=== PATIENT | male | born 1950 | race Caucasian/White ===

== ENCOUNTER → 2017-01-01 | Outpatient (CLI) | payer MEDICARE ==
[2017-01-01 11:42] LABS: HEMATOCRIT 35.6 % (37.9-51.0); HEMOGLOBIN 11.8 g/dL (13.5-17.0); HGB HCT DIFFERENCE -0.2; MEAN CORPUSCULAR HEMOGLOBIN 27.8 pg (27.0-33.4); MEAN CORPUSCULAR HGB CONC 33.1 g/dL (32.0-36.0); MEAN CORPUSCULAR VOLUME 84 fl (80-97); RED BLOOD COUNT 4.25 10^6/uL (4.35-5.55); RED CELL DISTRIBUTION WIDTH 16.6 % (11.5-14.0); WHITE BLOOD COUNT 4.5 10^3/uL (4.0-10.5)
[2017-01-01 11:53] LABS: APPEARANCE,URINE CLEAR; BILIRUBIN,URINE NEGATIVE (NEGATIVE); GLUCOSE, URINE >=500 mg/dL (NEGATIVE); KETONES,URINE NEGATIVE (NEGATIVE); LEUKOCYTE ESTERASE,URINE NEGATIVE (NEGATIVE); NITRITE,URINE NEGATIVE (NEGATIVE); PROTEIN,URINE >=500 mg/dL (NEGATIVE); URINE SPECIFIC GRAVITY 1.013; UROBILINOGEN,URINE NEGATIVE mg/dL (<2.0)
[2017-01-01 12:04] LABS: ANION GAP 8 (5-19); BLOOD UREA NITROGEN 25 mg/dL (7-20); CALCIUM 9.2 mg/dL (8.4-10.2); CARBON DIOXIDE 28 mmol/L (22-30); CHLORIDE 106 mmol/L (98-107); CREATININE RESULT 1.96 mg/dL (0.52-1.25); GLUCOSE 218 mg/dL (75-110); MAGNESIUM 1.9 mg/dL (1.6-2.3); POTASSIUM 4.1 mmol/L (3.6-5.0); SODIUM 141.5 mmol/L (137-145)
[2017-01-02 12:38] LABS: CREATININE URINE 102.4 mg/dL (Not Estab.)
== END ==
LOC: OD 10:18
PROVIDERS: ATTEND Internal Medicine Nephrology
DX: E11.22 Type 2 diabetes mellitus with diabetic chronic kidney disease (principal); N18.4 Chronic kidney disease, stage 4 (severe); R80.9 Proteinuria, unspecified; D64.9 Anemia, unspecified; E87.6 Hypokalemia
CPT/HCPCS: 36415; 80048; 81001; 82570; 83735; 84156; 85027

== ENCOUNTER → 2017-05-31 | Outpatient (CLI) | payer MEDICARE ==
[2017-05-31 10:41] LABS: HEMATOCRIT 28.8 % (37.9-51.0); HGB HCT DIFFERENCE 1.2; MEAN CORPUSCULAR HEMOGLOBIN 30.1 pg (27.0-33.4); MEAN CORPUSCULAR HGB CONC 34.6 g/dL (32.0-36.0); MEAN CORPUSCULAR VOLUME 87 fl (80-97); RED BLOOD COUNT 3.31 10^6/uL (4.35-5.55); RED CELL DISTRIBUTION WIDTH 14.1 % (11.5-14.0); WHITE BLOOD COUNT 3.9 10^3/uL (4.0-10.5)
[2017-05-31 10:52] LABS: APPEARANCE,URINE CLEAR; BILIRUBIN,URINE NEGATIVE (NEGATIVE); GLUCOSE, URINE >=500 mg/dL (NEGATIVE); KETONES,URINE NEGATIVE (NEGATIVE); LEUKOCYTE ESTERASE,URINE NEGATIVE (NEGATIVE); NITRITE,URINE NEGATIVE (NEGATIVE); PROTEIN,URINE 100 mg/dL (NEGATIVE); URINE SPECIFIC GRAVITY 1.006; UROBILINOGEN,URINE NEGATIVE mg/dL (<2.0)
[2017-05-31 11:08] LABS: URINE CREATININE 35.2 mg/dL (22-328)
[2017-05-31 11:08] LABS: ANION GAP 11 (5-19); BLOOD UREA NITROGEN 43 mg/dL (7-20); CARBON DIOXIDE 23 mmol/L (22-30); CHLORIDE 104 mmol/L (98-107); CREATININE RESULT 2.88 mg/dL (0.52-1.25); GLUCOSE 361 mg/dL (75-110); PHOSPHORUS 4.8 mg/dL (2.5-4.5); SODIUM 138.3 mmol/L (137-145)
[2017-05-31 11:16] LABS: URINE PROTEIN 259.1 mg/dL (<12)
== END ==
LOC: OD 09:26
PROVIDERS: ATTEND Internal Medicine Nephrology
DX: N18.4 Chronic kidney disease, stage 4 (severe) (principal); D64.9 Anemia, unspecified; E11.9 Type 2 diabetes mellitus without complications; R80.9 Proteinuria, unspecified
CPT/HCPCS: 36415; 80048; 81001; 82570; 83970; 84100; 84156; 85027

== ENCOUNTER → 2017-06-19 | Outpatient (CLI) | payer MEDICARE ==
[2017-06-19 11:24] LABS: HEMATOCRIT 27.7 % (37.9-51.0); HEMOGLOBIN 9.7 g/dL (13.5-17.0); HGB HCT DIFFERENCE 1.4; MEAN CORPUSCULAR HEMOGLOBIN 30.5 pg (27.0-33.4); MEAN CORPUSCULAR HGB CONC 34.9 g/dL (32.0-36.0); MEAN CORPUSCULAR VOLUME 87 fl (80-97); RED BLOOD COUNT 3.16 10^6/uL (4.35-5.55); WHITE BLOOD COUNT 3.6 10^3/uL (4.0-10.5)
[2017-06-19 11:49] LABS: ALANINE AMINOTRANSFERASE 26 U/L (21-72); ALBUMIN 3.3 g/dL (3.5-5.0); ALKALINE PHOSPHATASE 74 U/L (38-126); ANION GAP 9 (5-19); ASPARTATE AMINO TRANSFERASE 12 U/L (17-59); BILIRUBIN,DIRECT 0.2 mg/dL (0.0-0.4); BILIRUBIN,TOTAL 0.6 mg/dL (0.2-1.3); BLOOD UREA NITROGEN 50 mg/dL (7-20); CARBON DIOXIDE 25 mmol/L (22-30); CHLORIDE 110 mmol/L (98-107); CREATININE RESULT 2.82 mg/dL (0.52-1.25); GLUCOSE 87 mg/dL (75-110); PHOSPHORUS 5.1 mg/dL (2.5-4.5); SODIUM 143.6 mmol/L (137-145); TOTAL PROTEIN 5.6 g/dL (6.3-8.2)
[2017-06-20 14:39] LABS: A/G RATIO 1.2 (0.7-1.7); ALBUMIN 2 2.7 g/dL (2.9-4.4); ALPHA-1-GLOBULIN 2 0.2 g/dL (0.0-0.4); GAMMA GLOBULIN 0.3 g/dL (0.4-1.8)
[2017-06-20 18:07] LABS: PTH INTACT 93 pg/mL (15-65)
== END ==
LOC: OD 10:25
PROVIDERS: ATTEND Internal Medicine Nephrology
DX: N18.4 Chronic kidney disease, stage 4 (severe) (principal); E87.5 Hyperkalemia; R80.9 Proteinuria, unspecified; D64.9 Anemia, unspecified
CPT/HCPCS: 36415; 80053; 82728; 83540; 83550; 83970; 84100; 84165; 84443; 85027

== ENCOUNTER → 2017-10-16 | Outpatient (CLI) | payer MEDICARE ==
[2017-10-16 09:19] LABS: HEMATOCRIT 29.2 % (37.9-51.0); HEMOGLOBIN 9.9 g/dL (13.5-17.0); HGB HCT DIFFERENCE 0.5; MEAN CORPUSCULAR HEMOGLOBIN 28.5 pg (27.0-33.4); MEAN CORPUSCULAR HGB CONC 33.7 g/dL (32.0-36.0); MEAN CORPUSCULAR VOLUME 84 fl (80-97); RED BLOOD COUNT 3.47 10^6/uL (4.35-5.55); WHITE BLOOD COUNT 4.9 10^3/uL (4.0-10.5)
[2017-10-16 09:26] LABS: APPEARANCE,URINE CLEAR; BILIRUBIN,URINE NEGATIVE (NEGATIVE); GLUCOSE, URINE >=500 mg/dL (NEGATIVE); KETONES,URINE NEGATIVE (NEGATIVE); LEUKOCYTE ESTERASE,URINE NEGATIVE (NEGATIVE); NITRITE,URINE NEGATIVE (NEGATIVE); PROTEIN,URINE >=500 mg/dL (NEGATIVE); URINE SPECIFIC GRAVITY 1.011; UROBILINOGEN,URINE NEGATIVE mg/dL (<2.0)
[2017-10-16 09:50] LABS: ANION GAP 12 (5-19); BLOOD UREA NITROGEN 37 mg/dL (7-20); CALCIUM 8.6 mg/dL (8.4-10.2); CARBON DIOXIDE 23 mmol/L (22-30); CHLORIDE 112 mmol/L (98-107); CREATININE RESULT 3.06 mg/dL (0.52-1.25); GLUCOSE 180 mg/dL (75-110); POTASSIUM 4.9 mmol/L (3.6-5.0); SODIUM 146.8 mmol/L (137-145)
== END ==
LOC: OD 08:31
PROVIDERS: ATTEND Physician Assistant Medical
DX: E11.22 Type 2 diabetes mellitus with diabetic chronic kidney disease (principal); N18.4 Chronic kidney disease, stage 4 (severe); R80.9 Proteinuria, unspecified; D64.9 Anemia, unspecified; E87.6 Hypokalemia
CPT/HCPCS: 36415; 80048; 81001; 85027

== ENCOUNTER 2017-11-12 10:03 | Emergency (ER) | payer MEDICARE ==
--- NOTE | 2017-11-12 10:23 | ER Document Report ---
ED General - General Chief Complaint: Nose Bleed Stated Complaint: NOSE BLEED Time Seen by Provider: 11/12/17 10:15 Mode of Arrival: Ambulatory Information source: Patient Notes: 67-year-old male who is on aspirin presents with complaints of bleeding from his right nostril. Patient was placed her last night he had some packing when he takes packing out it starts bleeding. Patient denies any dizziness headaches or any other concerns TRAVEL OUTSIDE OF THE [place].S. IN LAST 30 DAYS: No - HPI Onset: Yesterday Onset/Duration: Sudden Quality of pain: No pain Severity: Mild Pain Level: Denies Associated symptoms: Other Exacerbated by: Denies Relieved by: Denies Similar symptoms previously: Yes - 2 weeks Recently seen / treated by doctor: No - Related Data Allergies/Adverse Reactions: No Known Allergies Allergy (Verified 11/12/17 10:04) Home Medications: Current Home Medications Aspirin [Adult Low Dose Aspirin EC] 81 mg PO DAILY 11/12/17 [History] Atorvastatin Calcium [Lipitor 20 mg Tablet] 20 mg PO QHS 11/12/17 [History] Calcium Carbonate [Calcium] 500 mg PO BID 11/12/17 [History] Carvedilol [Coreg 25 mg Tablet] 1 tab PO BID 11/12/17 [History] Cholecalciferol (Vitamin D3) [Vitamin D3] 1,000 unit PO BID 11/12/17 [History] Clonidine HCl [Catapres 0.2 mg Tablet] 0.2 mg PO Q8 11/12/17 [History] Cyanocobalamin (Vitamin B-12) [B-12] 1,000 mcg PO DAILY 11/12/17 [History] Furosemide [Lasix 40 mg Tablet] 40 mg PO BID 11/12/17 [History] Insulin Aspart [Novolog Flexpen] 8 unit SQ AC 11/12/17 [History] Insulin Glargine,Hum.rec.anlog [Lantus] 50 unit SQ QHS 11/12/17 [History] Lactulose 10 gm PO DAILY 11/12/17 [History] Lisinopril [Prinivil 40 mg Tablet] 40 mg PO BID 11/12/17 [History] [place]-3 Fatty Acids/Fish Oil [Fish Oil 1,000 mg Capsule] 1 each PO DAILY [History] Omeprazole 20 mg PO DAILY PRN 11/12/17 [History] Sildenafil Citrate [Viagra] 100 mg PO DAILY PRN 11/12/17 [History] Past Medical History - Social History Smoking Status: Former Smoker Cigarette use (# per day): No Chew tobacco use (# tins/day): No Smoking Education Provided: No Frequency of alcohol use: None Drug Abuse: None Family History: Reviewed & Not Pertinent Patient has suicidal ideation: No Patient has homicidal ideation: No - Past Medical History Cardiac Medical History: Reports: Hx Hypertension Denies: Hx Coronary Artery Disease, Hx Heart Attack Pulmonary Medical History: Denies: Hx Asthma, Hx Bronchitis, Hx COPD, Hx Pneumonia Neurological Medical History: Denies: Hx Cerebrovascular Accident, Hx Seizures Renal/ Medical History: Denies: Hx Peritoneal Dialysis GI Medical History: Reports: Hx Hiatal Hernia. Denies: Hx Hepatitis, Hx Ulcer Musculoskeltal Medical History: Denies Hx Arthritis Infectious Medical History: Denies: Hx Hepatitis Past Surgical History: Denies: Hx Open Heart Surgery, Hx Pacemaker - Immunizations Hx Diphtheria, Pertussis, Tetanus Vaccination: Yes Review of Systems - Review of Systems Notes: REVIEW OF SYSTEMS: CONSTITUTIONAL : Denies fever, chills, or sweats. Denies recent illness. EENT: Admits nosebleed CARDIOVASCULAR: Denies chest pain. Denies palpitations or racing or irregular heart beat. Denies ankle edema. RESPIRATORY: Denies cough, cold, or chest congestion. Denies shortness of breath, difficulty breathing, or wheezing. GASTROINTESTINAL: Denies abdominal pain or distention. Denies nausea, vomiting , or diarrhea. Denies blood in vomitus, stools, or per rectum. Denies black, tarry stools. Denies constipation. GENITOURINARY: Denies difficulty urinating, painful urination, burning, frequency, blood in urine, or discharge. MUSCULOSKELETAL: Denies back or neck pain or stiffness. Denies joint pain or swelling. SKIN: Denies rash, lesions or sores. HEMATOLOGIC : Denies easy bruising or bleeding. LYMPHATIC: Denies swollen, enlarged glands. NEUROLOGICAL: Denies confusion or altered mental status. Denies passing out or loss of consciousness. Denies dizziness or lightheadedness. Denies headache. Denies weakness or paralysis or loss of use of either side. Denies problems with gait or speech. Denies sensory loss, numbness, or tingling. Denies seizures. PSYCHIATRIC: Denies anxiety or stress. Denies depression, suicidal ideation, or homicidal ideation. ALL OTHER SYSTEMS REVIEWED AND NEGATIVE. Dictation was performed using [employer] voice recognition software PHYSICAL EXAMINATION: GENERAL: Well-appearing, well-nourished and in no acute distress. HEAD: Atraumatic, normocephalic. EYES: Pupils equal round extraocular movements intact, conjunctiva are normal. ENT: Nares patent there is dry blood in the right nostril packing of tissue was removed NECK: Normal range of motion LUNGS: No respiratory distress Musculoskeletal: Normal range of motion NEUROLOGICAL: Normal speech, normal gait. PSYCH: Normal mood, normal affect. SKIN: Warm, Dry, normal turgor, no rashes or lesions noted. Course - Re-evaluation Re-evalutation: 11/12/17 10:22 Patient currently has no active bleeding, this appears to be an anterior bleed as he is not hemorrhaging, at patient's request I will place packing 11/12/17 10:42 At patient's request nasal packing was placed in the right nostril with Afrin, no complications After performing a Medical Screening Examination, I estimate there is LOW risk for CENTRAL CORD SYNDROME, LUDWIGS ANGINA, PERITONSILLAR ABSCESS, RETROPHARYNGEAL ABSCESS, EPIDURAL MASS LESION, SEVERE SPINAL STENOSIS, ARTERIAL DISSECTION, MENINGITIS, or ACUTE CORONARY SYNDROME, thus I consider the discharge disposition reasonable. I have reevaluated this patient multiple times and no significant life threatening changes are noted. The patient and I have discussed the diagnosis and risks, and we agree with discharging home to follow-up on an outpatient basis with the understanding that symptoms and presentations can change. We also discussed returning to the Emergency Department immediately if new or worsening symptoms occur. We have discussed the symptoms which are most concerning (e.g., saddle anesthesia, urinary or bowel incontinence or retention, changing or worsening pain) that necessitate immediate return. Procedures - Additional Procedures nasal packing Time performed: 10:42 - using rhino rocket with afrin in right nostril no complication no bleeding Discharge - Discharge Clinical Impression: Epistaxis Condition: Stable Disposition: HOME, SELF-CARE Instructions: Nosebleed Instructions ([facility]) Additional Instructions: Please have nasal packing removed in 2-3 days by her primary care physician or follow-up with ENT as provided below Please contact the following office for an appointment tomorrow or returm immediately if there are any other concerns [facility] Address: [address] [place] [address], [place] [address] Prescriptions: Cephalexin Monohydrate [Keflex 500 mg Capsule] 500 mg PO Q6H 5 Days capsule
[2017-11-12] MEDS ORDERED: OXYMETAZOLINE HCL 0.05% NASAL SPRAY 15 ML BOTTLE NASL ONE (10:27)
== END 2017-11-12 10:46 | disposition home or self-care (01) ==
LOC: ER 10:03
DX: R04.0 Epistaxis (principal); I10 Essential (primary) hypertension; Z87.891 Personal history of nicotine dependence
CPT/HCPCS: 99283; 30901; J3490

== ENCOUNTER → 2018-01-10 | Outpatient (CLI) | payer MEDICARE ==
[2018-01-10 10:44] LABS: HEMATOCRIT 23.7 % (37.9-51.0); MEAN CORPUSCULAR HEMOGLOBIN 28.4 pg (27.0-33.4); MEAN CORPUSCULAR VOLUME 84 fl (80-97); PLATELET COUNT 109 10^3/uL (150-450); RED BLOOD COUNT 2.83 10^6/uL (4.35-5.55); RED CELL DISTRIBUTION WIDTH 16.6 % (11.5-14.0); WHITE BLOOD COUNT 3.8 10^3/uL (4.0-10.5)
[2018-01-10 11:02] LABS: ANION GAP 10 (5-19); BLOOD UREA NITROGEN 42 mg/dL (7-20); CALCIUM 8.6 mg/dL (8.4-10.2); CARBON DIOXIDE 21 mmol/L (22-30); CHLORIDE 111 mmol/L (98-107); GLUCOSE 207 mg/dL (75-110); POTASSIUM 4.3 mmol/L (3.6-5.0)
[2018-01-10 11:22] LABS: URINE CREATININE 56.4 mg/dL (22-328)
[2018-01-10 11:57] LABS: UR PRO/CREAT RATIO RESULT 16.2 mg/mg (0.0-0.2); URINE PROTEIN 912.6 mg/dL (<12)
== END ==
LOC: OD 10:10
PROVIDERS: ATTEND Physician Assistant Medical
DX: E11.22 Type 2 diabetes mellitus with diabetic chronic kidney disease (principal); I12.9 Hypertensive chronic kidney disease with stage 1 through stage 4 chronic kidney disease, or unspecified chronic kidney disease; N18.4 Chronic kidney disease, stage 4 (severe); R80.9 Proteinuria, unspecified
CPT/HCPCS: 36415; 80048; 82570; 84156; 85027

== ENCOUNTER 2018-02-14 12:01 | Emergency (ER) | payer OTHER, MEDICARE ==
--- NOTE | 2018-02-14 13:36 | ER Document Report ---
ED Medical Screen (RME) - General Chief Complaint: Anemia Stated Complaint: NEEDS BLOOD TRANSFUSION Time Seen by Provider: 02/14/18 13:36 Notes: Patient sent here by information and referral director for blood transfusion. Patient has chronic kidney disease as well as CLL. Had a colonoscopy yesterday which was unremarkable. Followed at the [facility] in [facility] as well. Oncologist locally is Dr. Jules in [place]. Patient states that he has had increased fatigue and generally not feeling well but denies any black tarry stools, hematemesis, hematochezia or other complaints at this time. Denies any fevers, chills, sweats. I have greeted and performed a rapid initial assessment of this patient. A comprehensive ED assessment and evaluation of the patient, analysis of test results and completion of the medical decision making process will be conducted by additional ED providers. TRAVEL OUTSIDE OF THE [place] IN LAST 30 DAYS: No - Related Data Allergies/Adverse Reactions: No Known Allergies Allergy (Verified 02/14/18 12:07) Past Medical History - Past Medical History Cardiac Medical History: Reports: Hx Hypercholesterolemia, Hx Hypertension Denies: Hx Coronary Artery Disease, Hx Heart Attack Pulmonary Medical History: Denies: Hx Asthma, Hx Bronchitis, Hx COPD, Hx Pneumonia Neurological Medical History: Denies: Hx Cerebrovascular Accident, Hx Seizures Renal/ Medical History: Denies: Hx Peritoneal Dialysis GI Medical History: Reports: Hx Hiatal Hernia. Denies: Hx Hepatitis, Hx Ulcer Musculoskeltal Medical History: Denies Hx Arthritis Infectious Medical History: Denies: Hx Hepatitis Past Surgical History: Reports: Hx Abdominal Surgery - hernia repair, Hx Appendectomy, Hx Cholecystectomy, Hx Kidney (Renal Surgery) - right kidney-half removed, Hx Orthopedic Surgery - laminectomy, knee. Denies: Hx Open Heart Surgery, Hx Pacemaker - Immunizations Hx Diphtheria, Pertussis, Tetanus Vaccination: Yes Physical Exam - Vital signs Vitals: Temp Pulse Resp BP Pulse Ox 98.9 F 66 20 152/60 H 96 02/14/18 12:18 02/14/18 12:18 02/14/18 12:18 02/14/18 12:18 02/14/18 12:18 Interpretation: Normal - Notes Notes: General: Alert no acute distress HEENT: Atraumatic, normocephalic, pupils equal round react to light and accommodation, extraocular muscles are intact, nose is non tender, posterior pharynx is without erythema or exudate. Tongue is unremarkable. Slightly pale conjunctiva Heart: Heart with regular rate and rhythm, no murmurs, no rubs, no clicks Lungs: Lungs clear to auscultation bilaterally, no wheezes, rhonchi, rales Abdomen: Abdomen is soft, nontender, nondistended, normal bowel sounds Neuro: cranial nerves II through XII intact, reflexes intact, sensation intact, Extremities:Moving all extremities. Equal strength bilaterally in the upper lower extremities. No significant deformity Skin: No lesions. Skin intact with slightly pale Psych: Normal insight. Normal judgment - General General appearance: Appears well, Alert - HEENT Head: Normocephalic, Atraumatic Eyes: Normal Pupils: PERRL - Respiratory Respiratory status: No respiratory distress Chest status: Nontender Breath sounds: Normal Chest palpation: Normal - Cardiovascular Rhythm: Regular Heart sounds: Normal auscultation Murmur: No - Abdominal Inspection: Normal Distension: No distension Bowel sounds: Normal Tenderness: Nontender Organomegaly: No organomegaly - Back Back: Normal, Nontender - Extremities General upper extremity: Normal inspection, Nontender, Normal color, Normal ROM , Normal temperature General lower extremity: Normal inspection, Nontender, Normal color, Normal ROM , Normal temperature, Normal weight bearing. No: Yesenia's sign - Neurological Neuro grossly intact: Yes Cognition: Normal Orientation: AAOx4 Cushing Coma Scale Eye Opening: Spontaneous Cushing Coma Scale Verbal: Oriented Cushing Coma Scale Motor: Obeys Commands Caitlin Coma Scale Total: 15 Speech: Normal Motor strength normal: LUE, RUE, LLE, RLE Sensory: Normal - Psychological Associated symptoms: Normal affect, Normal mood - Skin Skin Temperature: Warm Skin Moisture: Dry Skin Color: Normal Course - Re-evaluation Re-evalutation: 02/14/18 13:54 Patient's hemoglobin is 7 and hematocrit of 21. Will type and screen in order 1 unit PRBC at this time. - Vital Signs Vital signs: Temp Pulse Resp BP Pulse Ox 98.9 F 66 20 152/60 H 96 02/14/18 12:18 02/14/18 12:18 02/14/18 12:18 02/14/18 12:18 02/14/18 12:18
[2018-02-14] MEDS ORDERED: NORMAL SALINE 250 ML IV PRN ×3 (13:52→20:37)
--- NOTE | 2018-02-14 15:50 | ER Document Report ---
ED General - General Chief Complaint: Anemia Stated Complaint: NEEDS BLOOD TRANSFUSION Time Seen by Provider: 02/14/18 13:36 TRAVEL OUTSIDE OF THE [place]. IN LAST 30 DAYS: No - HPI Notes: 67-year-old male with a history of chronic anemia, iron deficiency, chronic kidney disease who presents for "transfusion". Patient had labs ordered and then later drawn today by his tax manager public. Was noted to have a hemoglobin of 7.2. He has had anemia in the past does not require transfusion. Is not currently taking iron supplementation. He denies any active rectal bleeding, no hematemesis. Just feels mildly weak. No chest pain or dyspnea. No use of anticoagulants. No other modifying factors, no other associated symptoms, no other provocative or palliative factors. - Related Data Allergies/Adverse Reactions: No Known Allergies Allergy (Verified 02/14/18 12:07) Past Medical History - Social History Smoking Status: Never Smoker Chew tobacco use (# tins/day): No Frequency of alcohol use: None Drug Abuse: None Family History: Reviewed & Not Pertinent Patient has suicidal ideation: No Patient has homicidal ideation: No - Past Medical History Cardiac Medical History: Reports: Hx Hypercholesterolemia, Hx Hypertension Denies: Hx Coronary Artery Disease, Hx Heart Attack Pulmonary Medical History: Denies: Hx Asthma, Hx Bronchitis, Hx COPD, Hx Pneumonia Neurological Medical History: Denies: Hx Cerebrovascular Accident, Hx Seizures Endocrine Medical History: Reports: Hx Diabetes Mellitus Type 2 Renal/ Medical History: Denies: Hx Peritoneal Dialysis Malignancy Medical History: Reports Other Other: history of CLL GI Medical History: Reports: Hx Hiatal Hernia. Denies: Hx Hepatitis, Hx Ulcer Musculoskeltal Medical History: Denies Hx Arthritis Infectious Medical History: Denies: Hx Hepatitis Past Surgical History: Reports: Hx Abdominal Surgery - hernia repair, Hx Appendectomy, Hx Cholecystectomy, Hx Kidney (Renal Surgery) - right kidney-half removed, Hx Orthopedic Surgery - laminectomy, knee. Denies: Hx Open Heart Surgery, Hx Pacemaker - Immunizations Hx Diphtheria, Pertussis, Tetanus Vaccination: Yes Review of Systems - Review of Systems Notes: As in the HPI, otherwise negative Physical Exam - Vital signs Vitals: Temp Pulse Resp BP Pulse Ox 98.9 F 66 20 152/60 H 96 02/14/18 12:18 02/14/18 12:18 02/14/18 12:18 02/14/18 12:18 02/14/18 12:18 - Notes Notes: General: Well-developed HEENT: NC/AT, PERRL. No pharyngeal injection. Mild conjunctival pallor Neck: Supple, no JVD. Chest:Clear with good air exchange. Cardiac: Regula rate and rhythm. no audible murmur. Abdomen:, Nondistended, no guarding rigidity or rebound. Nontender. Back: CVAT, unremarkable. Motor: Normal tone and power. Neurologic: Alert, nonfocal. Skin: Rashes petechiae or purpura. Extremeties: Well perfused, no significant edema. Course - Re-evaluation Re-evalutation: Male patient presents with likely acute on chronic anemia, appears to be more of a smoldering course. He is sent here by his tax manager public explicitly for transfusion. I attempted to contact him but have not received a call back. Patient is initially seen by the physician in triage, transfusion of packed red cells were ordered. Patient of note does have labs from this morning in the system as of 0 900 showed a hemoglobin of 7.2, otherwise unremarkable chemistries and CBC. He is not anticoagulated. Patient will receive 1 unit transfusion, will have a repeat hemoglobin, will follow up with his tax manager public for reevaluation. Of note, he had a colonoscopy and EGD done yesterday which she states only showed polyps but no active bleeding. He is not high risk at this time and again 18 15:50 does not appear to have an acute precipitous drop in hemoglobin but rather has more of a smoldering course. Patient is going to be placed up for discharge after transfusion providing his hemoglobin repeat is appropriate. Will be signed out to Dr. Dowell. - Vital Signs Vital signs: Temp Pulse Resp BP Pulse Ox 98.9 F 66 20 152/60 H 96 02/14/18 12:18 02/14/18 12:18 02/14/18 12:18 02/14/18 12:18 02/14/18 12:18 - Laboratory Laboratory results interpreted by me: 02/14/18 14:08 Crossmatch See Detail Discharge - Discharge Condition: Good Disposition: HOME, SELF-CARE Instructions: Anemia ([facility]) Referrals: Ailyn RICO MD [ACTIVE STAFF] - Follow up as needed
[2018-02-14 16:15] LABS: ABSOLUTE LYMPHOCYTES (AUTO) 0.8 10^3/uL (0.5-4.7); ABSOLUTE MONOCYTES (AUTO) 0.4 10^3/uL (0.1-1.4); ABSOLUTE NEUT (AUTO) 1.5 10^3/uL (1.7-8.2); BASOPHILS % (AUTO) 0.5 % (0-2); EOSINOPHILS % (AUTO) 1.6 % (0-6); HEMATOCRIT 23.5 % (37.9-51.0); LYMPHOCYTES % (AUTO) 27.1 % (13-45); MEAN CORPUSCULAR HEMOGLOBIN 27.9 pg (27.0-33.4); MEAN CORPUSCULAR HGB CONC 32.9 g/dL (32.0-36.0); MEAN CORPUSCULAR VOLUME 85 fl (80-97); MONOCYTES % (AUTO) 15.6 % (3-13); PLATELET COUNT 125 10^3/uL (150-450); RED BLOOD COUNT 2.77 10^6/uL (4.35-5.55); RED CELL DISTRIBUTION WIDTH 17.2 % (11.5-14.0); SEGMENTED NEUTROPHILS % (AUTO) 55.2 % (42-78); TOTAL CELLS COUNTED % (AUTO) 100 %; WHITE BLOOD COUNT 2.8 10^3/uL (4.0-10.5)
[2018-02-14 16:24] LABS: HEMOGLOBIN 7.7 g/dL (13.5-17.0)
[2018-02-14 19:45] LABS: ABSOLUTE LYMPHOCYTES (AUTO) 0.7 10^3/uL (0.5-4.7); ABSOLUTE MONOCYTES (AUTO) 0.4 10^3/uL (0.1-1.4); ABSOLUTE NEUT (AUTO) 1.1 10^3/uL (1.7-8.2); BASOPHILS % (AUTO) 0.5 % (0-2); EOSINOPHILS % (AUTO) 1.9 % (0-6); HEMATOCRIT 21.7 % (37.9-51.0); LYMPHOCYTES % (AUTO) 29.6 % (13-45); MEAN CORPUSCULAR HGB CONC 33.3 g/dL (32.0-36.0); MEAN CORPUSCULAR VOLUME 84 fl (80-97); MONOCYTES % (AUTO) 19.2 % (3-13); RED BLOOD COUNT 2.59 10^6/uL (4.35-5.55); RED CELL DISTRIBUTION WIDTH 17.1 % (11.5-14.0); SEGMENTED NEUTROPHILS % (AUTO) 48.8 % (42-78); TOTAL CELLS COUNTED % (AUTO) 100 %; WHITE BLOOD COUNT 2.3 10^3/uL (4.0-10.5)
[2018-02-14 19:55] LABS: PLATELET COUNT 96 10^3/uL (150-450)
[2018-02-14 20:15] LABS: HEMOGLOBIN 7.2 g/dL (13.5-17.0)
[2018-02-14] MEDS ORDERED: DIPHENHYDRAMINE HCL 25 MG CAPSULE PO PRN (20:37)
[2018-02-14] MEDS ORDERED: FUROSEMIDE 20 MG TABLET PO PRN (20:37)
[2018-02-15 02:01] LABS: ABSOLUTE LYMPHOCYTES (AUTO) 0.7 10^3/uL (0.5-4.7); ABSOLUTE MONOCYTES (AUTO) 0.4 10^3/uL (0.1-1.4); BASOPHILS % (AUTO) 0.4 % (0-2); EOSINOPHILS % (AUTO) 1.8 % (0-6); HEMATOCRIT 24.1 % (37.9-51.0); MEAN CORPUSCULAR HEMOGLOBIN 28.1 pg (27.0-33.4); MEAN CORPUSCULAR HGB CONC 33.2 g/dL (32.0-36.0); MEAN CORPUSCULAR VOLUME 85 fl (80-97); MONOCYTES % (AUTO) 19.5 % (3-13); RED BLOOD COUNT 2.85 10^6/uL (4.35-5.55); RED CELL DISTRIBUTION WIDTH 16.4 % (11.5-14.0); SEGMENTED NEUTROPHILS % (AUTO) 47.3 % (42-78); TOTAL CELLS COUNTED % (AUTO) 100 %; WHITE BLOOD COUNT 2.2 10^3/uL (4.0-10.5)
[2018-02-15 02:03] LABS: PLATELET COUNT 81 10^3/uL (150-450)
[2018-02-15 02:54] LABS: ABSOLUTE LYMPHOCYTES (AUTO) 0.7 10^3/uL (0.5-4.7); ABSOLUTE MONOCYTES (AUTO) 0.4 10^3/uL (0.1-1.4); ABSOLUTE NEUT (AUTO) 1.1 10^3/uL (1.7-8.2); BASOPHILS % (AUTO) 0.4 % (0-2); EOSINOPHILS % (AUTO) 2.1 % (0-6); HEMATOCRIT 22.7 % (37.9-51.0); LYMPHOCYTES % (AUTO) 32.2 % (13-45); MEAN CORPUSCULAR HEMOGLOBIN 28.2 pg (27.0-33.4); MEAN CORPUSCULAR HGB CONC 33.4 g/dL (32.0-36.0); MEAN CORPUSCULAR VOLUME 84 fl (80-97); MONOCYTES % (AUTO) 17.8 % (3-13); RED BLOOD COUNT 2.69 10^6/uL (4.35-5.55); RED CELL DISTRIBUTION WIDTH 16.1 % (11.5-14.0); SEGMENTED NEUTROPHILS % (AUTO) 47.5 % (42-78); TOTAL CELLS COUNTED % (AUTO) 100 %; WHITE BLOOD COUNT 2.2 10^3/uL (4.0-10.5)
[2018-02-15 02:56] LABS: PLATELET COUNT 85 10^3/uL (150-450)
[2018-02-15 02:58] LABS: HEMOGLOBIN 7.6 g/dL (13.5-17.0)
[2018-02-15] MEDS ORDERED: NORMAL SALINE 250 ML IV PRN (03:01)
[2018-02-15 05:25] LABS: ALANINE AMINOTRANSFERASE 29 U/L (21-72); ALBUMIN 2.6 g/dL (3.5-5.0); ALKALINE PHOSPHATASE 58 U/L (38-126); ANION GAP 6 (5-19); APPEARANCE,URINE CLEAR; ASPARTATE AMINO TRANSFERASE 10 U/L (17-59); BILIRUBIN,DIRECT 0.1 mg/dL (0.0-0.4); BILIRUBIN,TOTAL 0.6 mg/dL (0.2-1.3); BILIRUBIN,URINE NEGATIVE (NEGATIVE); BLOOD UREA NITROGEN 40 mg/dL (7-20); CALCIUM 8.3 mg/dL (8.4-10.2); CARBON DIOXIDE 20 mmol/L (22-30); CHLORIDE 117 mmol/L (98-107); COLOR,URINE COLORLESS; GLUCOSE, URINE 150 mg/dL (NEGATIVE); KETONES,URINE NEGATIVE (NEGATIVE); NITRITE,URINE NEGATIVE (NEGATIVE); POTASSIUM 4.1 mmol/L (3.6-5.0); PROTEIN,URINE >=500 mg/dL (NEGATIVE); SODIUM 143.3 mmol/L (137-145); TOTAL PROTEIN 4.7 g/dL (6.3-8.2); URINE SPECIFIC GRAVITY 1.013; UROBILINOGEN,URINE NEGATIVE mg/dL (<2.0)
[2018-02-15 05:26] LABS: GLUCOSE 118 mg/dL (75-110); LEUKOCYTE ESTERASE,URINE NEGATIVE (NEGATIVE)
--- NOTE | 2018-02-15 13:09 | ER Document Report ---
Doctor's Note Notes: 02/15/18 13:03 Rounds: Chart reviewed and patient interviewed. My understanding is the patient is waiting to be transferred to the [place] at [facility]. However, I received a call at approximately 11:40 AM from the advertising coordinator at the [place] saying that they had received the patient's faxed information, and wanted to know if we wanted to proceed further with getting the patient transferred. I reviewed the patient's entire chart and went and spoke with the patient. Basically, patient has chronic lymphocytic leukemia. He had a colonoscopy done on Sunday and had multiple polyps removed. He says as he was awakening from the anesthesia, he had the most severe abdominal pain is ever experienced, but it did not last long and he has not had any pain in his abdomen yesterday ( ) or today (Sunday). Patient says he has not had a bowel movement since the procedure. Has not vomited. Family member says that they noted on the patient's bed some small drops of blood after the procedure was over. Patient came here because of a low hemoglobin done at an outside lab in preparation for his being seen by his kidney doctor next week. Patient was called by that lab and told that his hemoglobin was low and he needed to come to the emergency department and get transfusions. Yesterday afternoon and his hemoglobin was 7.7 here. He was transferred 2 units of blood and repeat hemoglobin showed that it was not rising like it would be expected to do. A rectal exam performed here at that time was tested for guaiac and was negative. It was decided that he needed to be reevaluated by a port steward and we do not have any databases computer consultant here at this hospital so the patient was going [facility] have [facility]. Patient was given an additional 2 units of blood, for a total of 4 units of blood, just completing the fourth unit an hour or so ago. I might mention that the patient did also received 4 L of saline IV during the time he was also getting the 4 units of blood. He has not seen any black stools. He has not seen any bleeding per rectum since that initial few drops mentioned. His primary and only complaint is of feeling fatigued and not well. [facility] at noon, after I had reassessed the patient and reviewed his chart and got their message and I left a message to call me about going forward with the transfer process. I have repeated calls to the [place] at 1235 and at 12:50 PM today. 02/15/18 14:08 Received call from the [facility] hospital and spoke with Dr. Barrow who accepts the patient in transfer. Arrangements will be made for patient to be transferred to the [place]. Patient's abdominal x-rays looked like constipation to me. Waiting for results of most recent CBC drawn after the fourth unit of blood given. 02/15/18 15:02 Most recent hemoglobin after the fourth unit of blood was transfused shows a hemoglobin of 9.5.
--- NOTE | 2018-02-15 13:45 | RADIOLOGY REPORT (SQ) ---
EXAM DESCRIPTION: ACUTE ABDOMEN SERIES COMPLETED DATE/TIME: 02/15/2018 12:57 pm REASON FOR STUDY: Colonoscopy Sunday, declining HGB, no BM COMPARISON: None. NUMBER OF VIEWS: Three views. TECHNIQUE: Frontal chest, supine abdomen and upright abdomen radiographic images acquired. LIMITATIONS: None. FINDINGS: CHEST: Lungs clear of infiltrates. No pleural effusion or pneumothorax. Cardiac silhouet te size, andrew unremarkable. FREE AIR: None. No abnormal gas collections. BOWEL GAS PATTERN: Nonobstructive pattern. No dilated loops or air fluid levels. Moderate stool in t he ascending and transverse colon CALCIFICATIONS: No suspicious calcifications. HARDWARE: Clips right upper quadrant post cholecystectomy SOFT TISSUES: No gross mass or suggestion of organomegaly. BONES: No acute fracture. No worrisome bone lesions. OTHER: No other significant finding. IMPRESSION: NO RADIOGRAPHIC EVIDENCE FOR ACUTE ABDOMINAL DISEASE. TECHNICAL DOCUMENTATION: JOB ID: [id number]- All Rights Reserved Reading location - IP/workstation name: [email or web address]
[2018-02-15 14:24] LABS: ABSOLUTE EOSINOPHILS # (AUTO) 0.1 10^3/uL (0.0-0.6); ABSOLUTE LYMPHOCYTES (AUTO) 0.9 10^3/uL (0.5-4.7); ABSOLUTE MONOCYTES (AUTO) 0.4 10^3/uL (0.1-1.4); ABSOLUTE NEUT (AUTO) 1.3 10^3/uL (1.7-8.2); BASOPHILS % (AUTO) 0.5 % (0-2); EOSINOPHILS % (AUTO) 2.6 % (0-6); HEMOGLOBIN 9.5 g/dL (13.5-17.0); MEAN CORPUSCULAR HEMOGLOBIN 28.9 pg (27.0-33.4); MEAN CORPUSCULAR HGB CONC 33.9 g/dL (32.0-36.0); MEAN CORPUSCULAR VOLUME 85 fl (80-97); MONOCYTES % (AUTO) 15.3 % (3-13); RED BLOOD COUNT 3.28 10^6/uL (4.35-5.55); RED CELL DISTRIBUTION WIDTH 16.2 % (11.5-14.0); SEGMENTED NEUTROPHILS % (AUTO) 48.6 % (42-78); TOTAL CELLS COUNTED % (AUTO) 100 %; WHITE BLOOD COUNT 2.7 10^3/uL (4.0-10.5)
[2018-02-15 14:54] LABS: PLATELET COUNT 96 10^3/uL (150-450)
[2018-02-15 20:07] VITALS: BP 190/89
== END 2018-02-15 20:21 ==
LOC: ER 12:01
DX: D64.9 Anemia, unspecified (principal); C91.90 Lymphoid leukemia, unspecified not having achieved remission; R53.1 Weakness; I10 Essential (primary) hypertension; E11.9 Type 2 diabetes mellitus without complications; Z98.890 Other specified postprocedural states; Z90.5 Acquired absence of kidney
CPT/HCPCS: 99285; 86900; 86901; 36415; 36430; 86850; 82962; 85025; 82272; 80053; 81001; 86920; 74022; P9016; J7050

== ENCOUNTER → 2018-02-14 | Outpatient (CLI) | payer MEDICARE ==
[2018-02-14 10:06] LABS: HEMATOCRIT 21.6 % (37.9-51.0); MEAN CORPUSCULAR HEMOGLOBIN 28.1 pg (27.0-33.4); MEAN CORPUSCULAR HGB CONC 33.5 g/dL (32.0-36.0); MEAN CORPUSCULAR VOLUME 84 fl (80-97); PLATELET COUNT 117 10^3/uL (150-450); RED BLOOD COUNT 2.57 10^6/uL (4.35-5.55); RED CELL DISTRIBUTION WIDTH 17.4 % (11.5-14.0); WHITE BLOOD COUNT 3.2 10^3/uL (4.0-10.5)
[2018-02-14 10:12] LABS: HEMOGLOBIN 7.2 g/dL (13.5-17.0)
[2018-02-14 10:24] LABS: APPEARANCE,URINE CLEAR; BILIRUBIN,URINE NEGATIVE (NEGATIVE); COLOR,URINE STRAW; GLUCOSE, URINE 150 mg/dL (NEGATIVE); KETONES,URINE NEGATIVE (NEGATIVE); PROTEIN,URINE >=500 mg/dL (NEGATIVE); URINE SPECIFIC GRAVITY 1.014; UROBILINOGEN,URINE NEGATIVE mg/dL (<2.0)
[2018-02-14 10:25] LABS: LEUKOCYTE ESTERASE,URINE NEGATIVE (NEGATIVE); NITRITE,URINE NEGATIVE (NEGATIVE)
[2018-02-14 10:32] LABS: ALANINE AMINOTRANSFERASE 25 U/L (21-72); ALBUMIN 3.1 g/dL (3.5-5.0); ALKALINE PHOSPHATASE 68 U/L (38-126); ANION GAP 8 (5-19); ASPARTATE AMINO TRANSFERASE 7 U/L (17-59); BILIRUBIN,DIRECT 0.3 mg/dL (0.0-0.4); BILIRUBIN,TOTAL 0.5 mg/dL (0.2-1.3); BLOOD UREA NITROGEN 44 mg/dL (7-20); CALCIUM 8.5 mg/dL (8.4-10.2); CARBON DIOXIDE 21 mmol/L (22-30); CHLORIDE 112 mmol/L (98-107); GLUCOSE 153 mg/dL (75-110); IRON(TIBC) 23.5 ug/dL (49-181); POTASSIUM 4.4 mmol/L (3.6-5.0); SODIUM 141.4 mmol/L (137-145); TOTAL PROTEIN 5.3 g/dL (6.3-8.2)
[2018-02-15 06:39] LABS: COMPLEMENT C3 130 mg/dL (82-167); COMPLEMENT C4 41 mg/dL (14-44); HEPATITIS C VIRUS AB <0.1 s/co ratio (0.0-0.9); HEPATITS B SURFACE ANTIGEN Negative (Negative)
[2018-02-15 16:39] LABS: ANTIMYELOPEROXIDASE (MPO) AB <9.0 U/mL (0.0-9.0); ANTIPROTEINASE 3 (PR-3) AB <3.5 U/mL (0.0-3.5); CYTOPLASMIC (C-ANCA) <1:20 titer (Neg:<1:20)
[2018-02-16 14:45] LABS: ATYPICAL PANCA <1:20 titer (Neg:<1:20); HEPATITIS B CORE AB TOT Negative (Negative); PERINUCLEAR (P-ANCA) <1:20 titer (Neg:<1:20)
== END ==
LOC: OD 08:36
PROVIDERS: ATTEND Physician Assistant Medical
DX: I12.9 Hypertensive chronic kidney disease with stage 1 through stage 4 chronic kidney disease, or unspecified chronic kidney disease (principal); N18.4 Chronic kidney disease, stage 4 (severe); E11.9 Type 2 diabetes mellitus without complications; R80.9 Proteinuria, unspecified; D64.9 Anemia, unspecified
CPT/HCPCS: 36415; 80053; 81001; 82728; 83516; 83540; 83550; 85027; 86038; 86160; 86225; 86256; 86704; 86803; 86804; 87340

== ENCOUNTER → 2018-03-15 | Outpatient (CLI) | payer OTHER, MEDICARE ==
[2018-03-15 10:50] LABS: ABSOLUTE EOSINOPHILS # (AUTO) 0.1 10^3/uL (0.0-0.6); ABSOLUTE LYMPHOCYTES (AUTO) 0.7 10^3/uL (0.5-4.7); ABSOLUTE MONOCYTES (AUTO) 0.3 10^3/uL (0.1-1.4); ABSOLUTE NEUT (AUTO) 3.2 10^3/uL (1.7-8.2); BASOPHILS % (AUTO) 0.3 % (0-2); EOSINOPHILS % (AUTO) 2.8 % (0-6); HEMATOCRIT 26.9 % (37.9-51.0); HEMOGLOBIN 9.2 g/dL (13.5-17.0); LYMPHOCYTES % (AUTO) 16.6 % (13-45); MEAN CORPUSCULAR HEMOGLOBIN 28.8 pg (27.0-33.4); MEAN CORPUSCULAR HGB CONC 34.1 g/dL (32.0-36.0); MEAN CORPUSCULAR VOLUME 84 fl (80-97); MONOCYTES % (AUTO) 7.4 % (3-13); PLATELET COUNT 125 10^3/uL (150-450); RED BLOOD COUNT 3.18 10^6/uL (4.35-5.55); RED CELL DISTRIBUTION WIDTH 15.6 % (11.5-14.0); SEGMENTED NEUTROPHILS % (AUTO) 72.9 % (42-78); TOTAL CELLS COUNTED % (AUTO) 100 %; WHITE BLOOD COUNT 4.4 10^3/uL (4.0-10.5)
[2018-03-15 11:08] LABS: ALANINE AMINOTRANSFERASE 29 U/L (21-72); ALBUMIN 3.3 g/dL (3.5-5.0); ALKALINE PHOSPHATASE 75 U/L (38-126); ANION GAP 15 (5-19); ASPARTATE AMINO TRANSFERASE 9 U/L (17-59); BILIRUBIN,DIRECT 0.3 mg/dL (0.0-0.4); BILIRUBIN,TOTAL 0.5 mg/dL (0.2-1.3); BLOOD UREA NITROGEN 48 mg/dL (7-20); CALCIUM 8.9 mg/dL (8.4-10.2); CARBON DIOXIDE 23 mmol/L (22-30); CHLORIDE 112 mmol/L (98-107); GLUCOSE 106 mg/dL (75-110); POTASSIUM 4.6 mmol/L (3.6-5.0); SODIUM 149.6 mmol/L (137-145); TOTAL PROTEIN 5.7 g/dL (6.3-8.2)
== END ==
LOC: OD 10:02
PROVIDERS: ATTEND Internal Medicine Nephrology
DX: N18.4 Chronic kidney disease, stage 4 (severe) (principal); D64.9 Anemia, unspecified; E11.9 Type 2 diabetes mellitus without complications; R80.9 Proteinuria, unspecified
CPT/HCPCS: 36415; 80053; 85025

== ENCOUNTER → 2018-05-24 | Outpatient (CLI) | payer OTHER, MEDICARE ==
[2018-05-24 12:20] LABS: APPEARANCE,URINE SLIGHTLY-CLOUDY; BILIRUBIN,URINE NEGATIVE (NEGATIVE); COLOR,URINE YELLOW; GLUCOSE, URINE 150 mg/dL (NEGATIVE); KETONES,URINE NEGATIVE (NEGATIVE); LEUKOCYTE ESTERASE,URINE NEGATIVE (NEGATIVE); NITRITE,URINE NEGATIVE (NEGATIVE); PROTEIN,URINE >=500 mg/dL (NEGATIVE); URINE SPECIFIC GRAVITY 1.013; UROBILINOGEN,URINE NEGATIVE mg/dL (<2.0)
[2018-05-24 12:29] LABS: ANION GAP 12 (5-19); BLOOD UREA NITROGEN 55 mg/dL (7-20); CALCIUM 8.8 mg/dL (8.4-10.2); CARBON DIOXIDE 23 mmol/L (22-30); CHLORIDE 111 mmol/L (98-107); GLUCOSE 141 mg/dL (75-110); PHOSPHORUS 6.7 mg/dL (2.5-4.5); POTASSIUM 4.4 mmol/L (3.6-5.0); SODIUM 145.8 mmol/L (137-145)
[2018-05-24 12:34] LABS: HEMATOCRIT 22.6 % (37.9-51.0); MEAN CORPUSCULAR HEMOGLOBIN 29.1 pg (27.0-33.4); MEAN CORPUSCULAR HGB CONC 34.1 g/dL (32.0-36.0); MEAN CORPUSCULAR VOLUME 85 fl (80-97); PLATELET COUNT 156 10^3/uL (150-450); RED BLOOD COUNT 2.65 10^6/uL (4.35-5.55); RED CELL DISTRIBUTION WIDTH 16.6 % (11.5-14.0); WHITE BLOOD COUNT 5.1 10^3/uL (4.0-10.5)
[2018-05-24 13:47] LABS: HEMOGLOBIN 7.7 g/dL (13.5-17.0)
== END ==
LOC: OD 11:29
PROVIDERS: ATTEND Physician Assistant Medical
DX: I12.9 Hypertensive chronic kidney disease with stage 1 through stage 4 chronic kidney disease, or unspecified chronic kidney disease (principal); N18.4 Chronic kidney disease, stage 4 (severe); E87.0 Hyperosmolality and hypernatremia; R60.9 Edema, unspecified; D64.9 Anemia, unspecified
CPT/HCPCS: 36415; 80048; 81001; 83970; 84100; 85027

== ENCOUNTER → 2018-05-27 | Outpatient (CLI) | payer OTHER, MEDICARE ==
[2018-05-27 12:04] LABS: HEMATOCRIT 24.4 % (37.9-51.0); HEMOGLOBIN 8.6 g/dL (13.5-17.0); MEAN CORPUSCULAR HEMOGLOBIN 30.1 pg (27.0-33.4); MEAN CORPUSCULAR HGB CONC 35.2 g/dL (32.0-36.0); MEAN CORPUSCULAR VOLUME 86 fl (80-97); PLATELET COUNT 141 10^3/uL (150-450); RED BLOOD COUNT 2.85 10^6/uL (4.35-5.55); RED CELL DISTRIBUTION WIDTH 16.2 % (11.5-14.0); WHITE BLOOD COUNT 4.8 10^3/uL (4.0-10.5)
[2018-05-27 12:28] LABS: IRON(TIBC) 36.6 ug/dL (49-181)
== END ==
LOC: OD 11:31
PROVIDERS: ATTEND Internal Medicine Nephrology
DX: D64.9 Anemia, unspecified (principal); N18.4 Chronic kidney disease, stage 4 (severe)
CPT/HCPCS: 36415; 82728; 83540; 83550; 85027

== ENCOUNTER → 2018-06-04 | Outpatient (CLI) | payer OTHER, MEDICARE ==
[2018-06-04 10:58] LABS: HEMATOCRIT 23.2 % (37.9-51.0); MEAN CORPUSCULAR HEMOGLOBIN 29.2 pg (27.0-33.4); MEAN CORPUSCULAR HGB CONC 33.9 g/dL (32.0-36.0); MEAN CORPUSCULAR VOLUME 86 fl (80-97); PLATELET COUNT 111 10^3/uL (150-450); RED BLOOD COUNT 2.68 10^6/uL (4.35-5.55); RED CELL DISTRIBUTION WIDTH 16.6 % (11.5-14.0); WHITE BLOOD COUNT 3.7 10^3/uL (4.0-10.5)
[2018-06-04 11:08] LABS: HEMOGLOBIN 7.8 g/dL (13.5-17.0)
[2018-06-04 11:19] LABS: ANION GAP 13 (5-19); BLOOD UREA NITROGEN 58 mg/dL (7-20); CALCIUM 8.8 mg/dL (8.4-10.2); CARBON DIOXIDE 22 mmol/L (22-30); CHLORIDE 111 mmol/L (98-107); GLUCOSE 177 mg/dL (75-110); POTASSIUM 4.5 mmol/L (3.6-5.0); SODIUM 146.3 mmol/L (137-145)
== END ==
LOC: OD 09:59
PROVIDERS: ATTEND Internal Medicine Nephrology
DX: E11.22 Type 2 diabetes mellitus with diabetic chronic kidney disease (principal); I12.9 Hypertensive chronic kidney disease with stage 1 through stage 4 chronic kidney disease, or unspecified chronic kidney disease; N18.4 Chronic kidney disease, stage 4 (severe); R80.9 Proteinuria, unspecified; D64.9 Anemia, unspecified
CPT/HCPCS: 36415; 80048; 85027

== ENCOUNTER → 2018-07-01 | Outpatient (CLI) | payer OTHER, MEDICARE ==
[2018-07-01 13:04] LABS: HEMATOCRIT 22.5 % (37.9-51.0); MEAN CORPUSCULAR HEMOGLOBIN 29.1 pg (27.0-33.4); MEAN CORPUSCULAR HGB CONC 33.7 g/dL (32.0-36.0); MEAN CORPUSCULAR VOLUME 86 fl (80-97); PLATELET COUNT 146 10^3/uL (150-450); RED CELL DISTRIBUTION WIDTH 15.5 % (11.5-14.0); WHITE BLOOD COUNT 4.8 10^3/uL (4.0-10.5)
[2018-07-01 13:21] LABS: BLOOD UREA NITROGEN 61 mg/dL (7-20); CALCIUM 9.1 mg/dL (8.4-10.2); GLUCOSE 135 mg/dL (75-110)
[2018-07-01 13:22] LABS: ALANINE AMINOTRANSFERASE 21 U/L (21-72); ALBUMIN 3.7 g/dL (3.5-5.0); ALKALINE PHOSPHATASE 72 U/L (38-126); ANION GAP 15 (5-19); ASPARTATE AMINO TRANSFERASE 6 U/L (17-59); BILIRUBIN,DIRECT 0.3 mg/dL (0.0-0.4); BILIRUBIN,TOTAL 0.7 mg/dL (0.2-1.3); CARBON DIOXIDE 21 mmol/L (22-30); CHLORIDE 108 mmol/L (98-107); PHOSPHORUS 5.6 mg/dL (2.5-4.5); POTASSIUM 4.9 mmol/L (3.6-5.0); SODIUM 143.8 mmol/L (137-145); TOTAL PROTEIN 6.3 g/dL (6.3-8.2)
[2018-07-01 13:28] LABS: IRON(TIBC) 16.5 ug/dL (49-181)
[2018-07-01 13:36] LABS: HEMOGLOBIN 7.6 g/dL (13.5-17.0)
== END ==
LOC: OD 12:01
PROVIDERS: ATTEND Internal Medicine Nephrology
DX: I12.9 Hypertensive chronic kidney disease with stage 1 through stage 4 chronic kidney disease, or unspecified chronic kidney disease (principal); N18.4 Chronic kidney disease, stage 4 (severe); R80.9 Proteinuria, unspecified; D64.9 Anemia, unspecified
CPT/HCPCS: 36415; 80053; 82728; 83540; 83550; 83735; 83970; 84100; 85027

== ENCOUNTER 2018-07-10 12:09 | Emergency (ER) | payer OTHER, MEDICARE ==
--- NOTE | 2018-07-10 13:42 | ER Document Report ---
ED Medical Screen (RME) - General Chief Complaint: Dizziness Stated Complaint: DIZZY Time Seen by Provider: 07/10/18 13:40 Mode of Arrival: Wheelchair Information source: Patient Notes: This is a 68-year-old man with a well status post chemotherapy, chemotherapy induced neuropathy, chronic kidney disease, anemia secondary to iron deficiency and a history of GI bleeding. Patient presents to the emergency room with dizziness in the setting of a decreased hemoglobin. TRAVEL OUTSIDE OF THE [place] IN LAST 30 DAYS: No - Related Data Allergies/Adverse Reactions: No Known Allergies Allergy (Verified 07/10/18 12:09) Past Medical History - Social History Chew tobacco use (# tins/day): No Frequency of alcohol use: None Drug Abuse: None - Past Medical History Cardiac Medical History: Reports: Hx Hypercholesterolemia, Hx Hypertension Denies: Hx Coronary Artery Disease, Hx Heart Attack Pulmonary Medical History: Denies: Hx Asthma, Hx Bronchitis, Hx COPD, Hx Pneumonia Neurological Medical History: Denies: Hx Cerebrovascular Accident, Hx Seizures Endocrine Medical History: Reports: Hx Diabetes Mellitus Type 2 Renal/ Medical History: Reports: Hx End Stage Renal Disease. Denies: Hx Peritoneal Dialysis GI Medical History: Reports: Hx Hiatal Hernia. Denies: Hx Hepatitis, Hx Ulcer Musculoskeltal Medical History: Denies Hx Arthritis Infectious Medical History: Denies: Hx Hepatitis Past Surgical History: Reports: Hx Abdominal Surgery - hernia repair, Hx Appendectomy, Hx Cholecystectomy, Hx Kidney (Renal Surgery) - right kidney-half removed, Hx Orthopedic Surgery - laminectomy, knee. Denies: Hx Open Heart Surgery, Hx Pacemaker - Immunizations Hx Diphtheria, Pertussis, Tetanus Vaccination: Yes Physical Exam - Vital signs Vitals: Temp Pulse Resp BP Pulse Ox 97.6 F 56 L 14 166/62 H 97 07/10/18 12:22 07/10/18 12:22 07/10/18 12:22 07/10/18 12:22 07/10/18 12:22 Course - Vital Signs Vital signs: Temp Pulse Resp BP Pulse Ox 97.6 F 56 L 14 166/62 H 97 07/10/18 12:22 07/10/18 12:22 07/10/18 12:22 07/10/18 12:22 07/10/18 12:22 Doctor's Discharge - Discharge Referrals: SHERRY NARAYAN MD [Primary Care Provider] - Follow up as needed
[2018-07-10 14:09] LABS: ABSOLUTE EOSINOPHILS # (AUTO) 0.1 10^3/uL (0.0-0.6); ABSOLUTE LYMPHOCYTES (AUTO) 0.9 10^3/uL (0.5-4.7); ABSOLUTE MONOCYTES (AUTO) 0.3 10^3/uL (0.1-1.4); BASOPHILS % (AUTO) 0.4 % (0-2); EOSINOPHILS % (AUTO) 2.5 % (0-6); LYMPHOCYTES % (AUTO) 17.5 % (13-45); MEAN CORPUSCULAR HEMOGLOBIN 28.8 pg (27.0-33.4); MEAN CORPUSCULAR HGB CONC 33.2 g/dL (32.0-36.0); MEAN CORPUSCULAR VOLUME 87 fl (80-97); MONOCYTES % (AUTO) 5.7 % (3-13); PLATELET COUNT 144 10^3/uL (150-450); RED BLOOD COUNT 2.77 10^6/uL (4.35-5.55); RED CELL DISTRIBUTION WIDTH 15.3 % (11.5-14.0); SEGMENTED NEUTROPHILS % (AUTO) 73.9 % (42-78); TOTAL CELLS COUNTED % (AUTO) 100 %; WHITE BLOOD COUNT 5.4 10^3/uL (4.0-10.5)
[2018-07-10] MEDS ORDERED: MECLIZINE HCL 25 MG TABLET PO ONE (14:29)
[2018-07-10] MEDS ORDERED: METOCLOPRAMIDE HCL 10 MG TABLET PO ONE (14:31)
[2018-07-10 14:34] LABS: ALANINE AMINOTRANSFERASE 18 U/L (21-72); ALBUMIN 3.7 g/dL (3.5-5.0); ALKALINE PHOSPHATASE 70 U/L (38-126); ANION GAP 16 (5-19); ASPARTATE AMINO TRANSFERASE 7 U/L (17-59); BILIRUBIN,DIRECT 0.3 mg/dL (0.0-0.4); BILIRUBIN,TOTAL 0.8 mg/dL (0.2-1.3); BLOOD UREA NITROGEN 61 mg/dL (7-20); CALCIUM 8.7 mg/dL (8.4-10.2); CARBON DIOXIDE 18 mmol/L (22-30); CHLORIDE 109 mmol/L (98-107); GLUCOSE 232 mg/dL (75-110); POTASSIUM 4.4 mmol/L (3.6-5.0); SODIUM 143.4 mmol/L (137-145); TOTAL PROTEIN 6.3 g/dL (6.3-8.2)
[2018-07-10] MEDS ORDERED: NORMAL SALINE 500 ML IV ONE (14:39)
--- NOTE | 2018-07-10 14:39 | ER Document Report ---
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 Patient states that yesterday evening while laying in bed he felt his heart pounding rapidly. He states that he got up to walk and felt off balance and dizzy. He denies vertiginous symptoms, lightheadedness just feels. Patient admits to an associated aching headache that is located between his eyes. He is also complaining of some abdominal distention but denies any chest pain, shortness of breath, abdominal pain, nausea, vomiting, fever, recent illness. He does have known iron deficiency and anemia and per the daughter [place] is trying to set up iron infusions. Patient's last bowel movement was yesterday. He states that they have been black due to iron supplementations but denies any gross blood. Patient denies any changes in medication. TRAVEL OUTSIDE OF THE [place] IN LAST 30 DAYS: No - HPI Onset: Yesterday Onset/Duration: Sudden, Persistent Quality of pain: Achy Severity: Mild Associated symptoms: Headache. denies: Chest pain, Nonproductive cough, Productive cough, Diarrhea, Nausea, Vomiting, Shortness of breath, Weakness Exacerbated by: Walking Relieved by: Remaining still Similar symptoms previously: No Recently seen / treated by doctor: No - Related Data Allergies/Adverse Reactions: No Known Allergies Allergy (Verified 07/10/18 12:09) Past Medical History - General Information source: Patient, Relative, [facility] Records - Social History Smoking Status: Former Smoker Chew tobacco use (# tins/day): No Frequency of alcohol use: None Drug Abuse: None Lives with: Family Family History: Reviewed & Not Pertinent Patient has suicidal ideation: No Patient has homicidal ideation: No - Past Medical History Cardiac Medical History: Reports: Hx Hypercholesterolemia, Hx Hypertension Denies: Hx Coronary Artery Disease, Hx Heart Attack Pulmonary Medical History: Denies: Hx Asthma, Hx Bronchitis, Hx COPD, Hx Pneumonia Neurological Medical History: Denies: Hx Cerebrovascular Accident, Hx Seizures Endocrine Medical History: Reports: Hx Diabetes Mellitus Type 2 Renal/ Medical History: Reports: Hx End Stage Renal Disease. Denies: Hx Peritoneal Dialysis GI Medical History: Reports: Hx Hiatal Hernia. Denies: Hx Hepatitis, Hx Ulcer Musculoskeletal Medical History: Denies Hx Arthritis Infectious Medical History: Denies: Hx Hepatitis Past Surgical History: Reports: Hx Abdominal Surgery - hernia repair, Hx Appendectomy, Hx Cholecystectomy, Hx Kidney (Renal Surgery) - right kidney-half removed, Hx Orthopedic Surgery - laminectomy, knee. Denies: Hx Open Heart Surgery, Hx Pacemaker - Immunizations Hx Diphtheria, Pertussis, Tetanus Vaccination: Yes Review of Systems - Review of Systems Notes: REVIEW OF SYSTEMS: CONSTITUTIONAL : Denies fever, chills, or sweats. Denies recent illness. Denies weight loss, recent hospitalizations. EENT: Denies visual changes, eye pain. Denies nasal or sinus congestion or discharge. Denies sore throat, oral lesions, difficulty swallowing. CARDIOVASCULAR: Denies chest pain. RESPIRATORY: Denies cough, cold, or chest congestion. Denies shortness of breath, wheezing. GASTROINTESTINAL: Denies abdominal pain or distention. Denies nausea, vomiting , or diarrhea. Denies blood in vomitus, stools, or per rectum. Denies black, tarry stools. Denies constipation. GENITOURINARY: Denies difficulty urinating, painful urination, frequency, blood in urine, or vaginal discharge. MUSCULOSKELETAL: Denies back or neck pain or stiffness. Denies joint pain or swelling. SKIN: Denies rash, lesions or sores. HEMATOLOGIC : Denies easy bruising or bleeding. LYMPHATIC: Denies swollen glands. NEUROLOGICAL: Denies confusion or altered mental status. Denies passing out or loss of consciousness. Denies lightheadedness. Denies weakness or paralysis. Denies problems difficulty with ambulation, slurred speech. Denies sensory loss, numbness, or tingling. Denies seizures. PSYCHIATRIC: Denies anxiety or stress. Denies depression, suicidal ideation, or homicidal ideation. Denies visual or auditory hallucinations. Physical Exam - Vital signs Vitals: Temp Pulse Resp BP Pulse Ox 97.6 F 56 L 14 166/62 H 97 07/10/18 12:22 07/10/18 12:22 07/10/18 12:22 07/10/18 12:22 07/10/18 12:22 Interpretation: Hypertensive, Bradycardic - Notes Notes: PHYSICAL EXAMINATION: GENERAL: Well-appearing, well-nourished and in no acute distress. HEAD: Atraumatic, normocephalic. EYES: Pupils equal round and reactive to light, extraocular movements intact, sclera anicteric, conjunctiva are normal. No Nystagmus ENT: Nares patent, oropharynx clear without exudates. Moist mucous membranes. NECK: Normal range of motion, supple without lymphadenopathy LUNGS: Breath sounds clear to auscultation bilaterally and equal. No wheezes rales or rhonchi. HEART: Regular rate and rhythm without murmurs. Bounding pulses ABDOMEN: Soft, nontender, nondistended abdomen. No guarding, no rebound. No masses appreciated. Musculoskeletal: Normal range of motion, no pitting or edema. No cyanosis. NEUROLOGICAL: Cranial nerves grossly intact. Normal speech, normal gait. Patient able to walk heal to toe. Normal sensory, motor exams. NIH-0 PSYCH: Normal mood, normal affect. SKIN: Warm, Dry, normal turgor, no rashes or lesions noted. Course - Re-evaluation Re-evalutation: Laboratory 07/10/18 07/10/18 07/10/18 13:44 13:44 13:59 WBC 5.4 RBC 2.77 L Hgb 8.0 L Hct 24.0 L MCV 87 MCH 28.8 MCHC 33.2 RDW 15.3 H Plt Count 144 L Seg Neutrophils % 73.9 Lymphocytes % 17.5 Monocytes % 5.7 Eosinophils % 2.5 Basophils % 0.4 Absolute Neutrophils 4.0 Absolute Lymphocytes 0.9 Absolute Monocytes 0.3 Absolute Eosinophils 0.1 Absolute Basophils 0.0 Sodium 143.4 Potassium 4.4 Chloride 109 H Carbon Dioxide 18 L Anion Gap 16 BUN 61 H Creatinine 4.89 H Est GFR ( Amer) 14 L Est GFR (Non-Af Amer) 12 L Glucose 232 H Calcium 8.7 Magnesium Total Bilirubin 0.8 Direct Bilirubin 0.3 Neonat Total Bilirubin Not Reportable Neonat Direct Bilirubin Not Reportable Neonat Indirect Bili Not Reportable AST 7 L ALT 18 L Alkaline Phosphatase 70 Creatine Kinase CK-MB (CK-2) Troponin I NT-Pro-B Natriuret Pep Total Protein 6.3 Albumin 3.7 Stool Occult Blood Blood Type Cancelled Antibody Screen Cancelled 07/10/18 07/10/18 07/10/18 14:39 15:37 15:37 WBC RBC Hgb Hct MCV MCH MCHC RDW Plt Count Seg Neutrophils % Lymphocytes % Monocytes % Eosinophils % Basophils % Absolute Neutrophils Absolute Lymphocytes Absolute Monocytes Absolute Eosinophils Absolute Basophils Sodium Potassium Chloride Carbon Dioxide Anion Gap BUN Creatinine Est GFR ( Amer) Est GFR (Non-Af Amer) Glucose Calcium Magnesium 2.2 Total Bilirubin Direct Bilirubin Neonat Total Bilirubin Neonat Direct Bilirubin Neonat Indirect Bili AST ALT Alkaline Phosphatase Creatine Kinase 334 H CK-MB (CK-2) Troponin I NT-Pro-B Natriuret Pep Total Protein Albumin Stool Occult Blood NEGATIVE Blood Type A POSITIVE Antibody Screen NEGATIVE 07/10/18 15:37 WBC RBC Hgb Hct MCV MCH MCHC RDW Plt Count Seg Neutrophils % Lymphocytes % Monocytes % Eosinophils % Basophils % Absolute Neutrophils Absolute Lymphocytes Absolute Monocytes Absolute Eosinophils Absolute Basophils Sodium Potassium Chloride Carbon Dioxide Anion Gap BUN Creatinine Est GFR ( Amer) Est GFR (Non-Af Amer) Glucose Calcium Magnesium Total Bilirubin Direct Bilirubin Neonat Total Bilirubin Neonat Direct Bilirubin Neonat Indirect Bili AST ALT Alkaline Phosphatase Creatine Kinase CK-MB (CK-2) 5.12 H Troponin I < 0.012 NT-Pro-B Natriuret Pep 7870 H Total Protein Albumin Stool Occult Blood Blood Type Antibody Screen Head CT 07/10/18 14:29 IMPRESSION: No acute or suspicious intracranial abnormality. Chest X-Ray 07/10/18 14:30 IMPRESSION: NO ACUTE DISEASE. 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 Patient states that yesterday evening while laying in bed he felt his heart pounding rapidly. He states that he got up to walk and felt off balance and dizzy. Patient has a normal exam. Tandem gait within normal limits. Ambulates independently without difficulty. NIH-0. Patient did receive IV fluids,, Zofran. Slightly improved when comparing to labs done over the last few weeks. Patient is orthostatic negative. Patient has no stool. CBC is without leukocytosis. He does have a history of chronic kidney disease with is seen on his CMP today. Within normal limits. Patient does have an elevated CK-MB likely related to end -stage renal. Patient is not currently undergoing any dialysis. Chest x-ray and head CT are within normal limits. He does report that he has had a change in medication where his blood pressure medication was doubled. That occurred 2 days prior to arrival and could be contributing to his dizziness. Patient does have an upcoming appointment with his oncologist tomorrow in the room. I have provided records of lab work that was performed today as well as the imaging that was performed. Patient provided the opportunity to ask questions, and express concerns. Discharge instructions discussed. Patient is agreeable with discharge home. Return indications explained and discussed with the patient who displays understanding. Patient encouraged to return to the emergency department immediately with any concerns. 07/10/18 17:19 Patient reports improvement of his dizziness and headache. He does have an upcoming appointment tomorrow with his oncologist which he is encouraged to keep. 07/11/18 13:09 07/11/18 13:09 07/11/18 13:12 - Vital Signs Vital signs: Temp Pulse Resp BP Pulse Ox 98.2 F 64 15 158/73 H 95 07/10/18 17:39 07/10/18 17:39 07/10/18 17:39 07/10/18 17:39 07/10/18 17:39 - Laboratory Result Diagrams: 07/10/18 13:44 07/10/18 13:44 Laboratory results interpreted by me: 07/10/18 07/10/18 07/10/18 13:44 13:44 15:37 RBC 2.77 L Hgb 8.0 L Hct 24.0 L RDW 15.3 H Plt Count 144 L Chloride 109 H Carbon Dioxide 18 L BUN 61 H Creatinine 4.89 H Est GFR ( Amer) 14 L Est GFR (Non-Af Amer) 12 L Glucose 232 H AST 7 L ALT 18 L Creatine Kinase 334 H CK-MB (CK-2) NT-Pro-B Natriuret Pep 07/10/18 15:37 RBC Hgb Hct RDW Plt Count Chloride Carbon Dioxide BUN Creatinine Est GFR ( Amer) Est GFR (Non-Af Amer) Glucose AST ALT Creatine Kinase CK-MB (CK-2) 5.12 H NT-Pro-B Natriuret Pep 7870 H - Diagnostic Test Radiology reviewed: Image reviewed, Reports reviewed - EKG Interpretation by Me EKG shows normal: Sinus rhythm Rate: Normal Rhythm: NSR - QTc 504. QRS 96. Heart rate 63. When compared to previous EKG there are: Previous EKG unavailable Discharge - Discharge Clinical Impression: Dizziness, Elevated blood pressure reading Headache Qualifiers: Headache type: unspecified Headache chronicity pattern: acute headache Intractability: not intractable Qualified Code(s): R51 - Headache CKD (chronic kidney disease) Qualifiers: Chronic kidney disease stage: stage 3 (moderate) Qualified Code(s): N18.3 - Chronic kidney disease, stage 3 (moderate) Iron deficiency anemia Qualifiers: Iron deficiency anemia type: unspecified iron deficiency Qualified Code(s): D50.9 - Iron deficiency anemia, unspecified Condition: Good Disposition: HOME, SELF-CARE Instructions: Antinausea Medication ([facility]), Dizziness ([facility]), Meclizine ([facility]) Additional Instructions: Your CAT scan today was normal. Your chest x-ray showed no evidence of infection. Your hemoglobin today was 8 which is better than it was last week. Your stool did not have any blood in it. Your kidney function is at baseline. Please keep your appointment with your oncologist tomorrow. We have provided you copies of your lab work and imaging that was performed today. Prescriptions: Meclizine HCl 25 mg PO Q8H PRN #10 tab.chew PRN Reason: Dizziness Forms: Elevated Blood Pressure Referrals: SHERRY NARAYAN MD [Primary Care Provider] - Follow up in 3-5 days
--- NOTE | 2018-07-10 15:39 | RADIOLOGY REPORT (SQ) ---
EXAM DESCRIPTION: CT HEAD WITHOUT COMPLETED DATE/TIME: 07/10/2018 3:30 pm REASON FOR STUDY: dizzy COMPARISON: None. TECHNIQUE: Axial images acquired through the brain without intravenous contrast. Images reviewed wi th bone, brain and subdural windows. Images stored on PACS. All CT scanners at this facility use dose modulation, iterative reconstruction, and/or weight based d osing when appropriate to reduce radiation dose to as low as reasonably achievable (ALARA). [facility]: Dose Right [facility]: SureCare [facility]: Dose Right [facility]: Teradose 4D [facility]: [id number] RADIATION DOSE: CT Rad equipment meets quality standard of care and radiation dose reduction techniq ues were employed. CTDIvol: 53.2 mGy. DLP: 1097 mGy-cm. mGy. LIMITATIONS: None. FINDINGS: VENTRICLES: Normal size and contour. CEREBRUM: No mass effect. No hemorrhage. No midline shift. Normal dumont/white matter differentiatio n. No evidence for acute territorial infarction. CEREBELLUM: No mass effect. No hemorrhage. No alteration of density. No evidence for acute infarct ion. EXTRAAXIAL SPACES: No fluid collections. ORBITS AND GLOBE: Symmetrical contour of the globes. CALVARIUM: No depressed skull fracture. PARANASAL SINUSES: No fluid levels. SOFT TISSUES: No hematoma. IMPRESSION: No acute or suspicious intracranial abnormality. TECHNICAL DOCUMENTATION: JOB ID: [id number] [address] [id number]: Final reports with documentation of one or more dose reduction techniques (e.g., Automate d exposure control, adjustment of the mA and/or kV according to patient size, use of iterative recons truction technique) 2010 [employer]- All Rights Reserved Reading location - IP/workstation name: [email or web address]
--- NOTE | 2018-07-10 15:40 | RADIOLOGY REPORT (SQ) ---
EXAM DESCRIPTION: CHEST 2 VIEWS COMPLETED DATE/TIME: 07/10/2018 3:26 pm REASON FOR STUDY: palpitations COMPARISON: None. EXAM PARAMETERS: NUMBER OF VIEWS: two views TECHNIQUE: Digital Frontal and Lateral radiographic views of the chest acquired. RADIATION DOSE: NA LIMITATIONS: none FINDINGS: LUNGS AND PLEURA: No acute infiltrates or effusions. MEDIASTINUM AND HILAR STRUCTURES: No masses or contour abnormalities. HEART AND VASCULAR STRUCTURES: The heart is normal with aortic atherosclerosis. BONES: Dorsal spondylosis. . HARDWARE: None in the chest. OTHER: No other significant finding. IMPRESSION: NO ACUTE DISEASE. TECHNICAL DOCUMENTATION: JOB ID: [id number] SC-[id number] 2010 [employer]- All Rights Reserved Reading location - IP/workstation name: [email or web address]
[2018-07-10 16:17] LABS: CREATINE KINASE MB 5.12 ng/mL (<4.55); NT PRO BNP 7870 pg/mL (5-900)
[2018-07-10 16:19] VITALS: BP 158/73
[2018-07-10 16:23] LABS: TROPONIN I < 0.012 ng/mL
[2018-07-10] MEDS ORDERED: DIPHENHYDRAMINE HCL 50 MG/ML VIAL IV ONE (17:12)
--- NOTE | 2018-07-10 22:19 | EKG REPORT ---
SEVERITY:- ABNORMAL ECG - SINUS RHYTHM NONSPECIFIC T ABNORMALITIES, LATERAL LEADS PROLONGED QT INTERVAL : Confirmed by: Leann Talamantes 10-Jul-2018 22:18:56
== END 2018-07-10 18:01 | disposition home or self-care (01) ==
LOC: ER 12:09
DX: R42 Dizziness and giddiness (principal); E11.9 Type 2 diabetes mellitus without complications; D50.9 Iron deficiency anemia, unspecified; N18.3 Chronic kidney disease, stage 3 (moderate); R51 Headache; E11.22 Type 2 diabetes mellitus with diabetic chronic kidney disease; I12.9 Hypertensive chronic kidney disease with stage 1 through stage 4 chronic kidney disease, or unspecified chronic kidney disease
CPT/HCPCS: 93005; 99285; 96361; 96374; 86900; 86901; 36415; 82553; 86850; 82550; 83735; 85025; 82272; 80053; 84484; 83880; 71046; 70450; 93010; J1200; J7040

== ENCOUNTER 2018-07-17 07:55 | Outpatient (CLI) | payer OTHER, MEDICARE ==
[2018-07-17] MEDS ORDERED: NORMAL SALINE 250 ML IV PRN (08:09)
[2018-07-17] MEDS ORDERED: IRON SUCROSE COMPLEX 300 MG in NORMAL SALINE 250 ML IV PRN (08:10)
[2018-07-17 11:55] VITALS: BP 158/64
== END 2018-07-17 11:55 | disposition home or self-care (01) ==
LOC: II 07:55 → 5TH 07:59 → II 11:55
PROVIDERS: ATTEND Internal Medicine Nephrology
PROC: 3E033GC Introduction of Other Therapeutic Substance into Peripheral Vein, Percutaneous Approach (ICD-10-PCS; principal; 2018-07-17)
DX: D50.8 Other iron deficiency anemias (principal); N18.9 Chronic kidney disease, unspecified
CPT/HCPCS: 96365; 96366; J1756; J7050

== ENCOUNTER 2018-07-24 07:48 | Outpatient (CLI) | payer OTHER, MEDICARE ==
[2018-07-24] MEDS ORDERED: IRON SUCROSE COMPLEX 300 MG in NORMAL SALINE 250 ML IV PRN (08:13)
[2018-07-24 08:53] VITALS: BP 146/61
== END 2018-07-24 10:46 | disposition home or self-care (01) ==
LOC: II 07:48 → 4W 07:50 → II 10:46
PROVIDERS: ATTEND Internal Medicine Nephrology
PROC: 3E033GC Introduction of Other Therapeutic Substance into Peripheral Vein, Percutaneous Approach (ICD-10-PCS; principal; 2018-07-24)
DX: D50.8 Other iron deficiency anemias (principal); N18.9 Chronic kidney disease, unspecified
CPT/HCPCS: 96367; J1756; J7050; 96365; 96366

== ENCOUNTER 2018-08-08 07:33 | Outpatient (CLI) | payer OTHER, MEDICARE ==
[2018-08-08] MEDS ORDERED: IRON SUCROSE COMPLEX 300 MG in NORMAL SALINE 250 ML IV PRN (08:03)
[2018-08-08 08:30] VITALS: BP 132/72
== END 2018-08-08 10:31 | disposition home or self-care (01) ==
LOC: II 07:33 → 5TH 07:41 → II 10:31
PROVIDERS: ATTEND Internal Medicine Nephrology
PROC: 3E033GC Introduction of Other Therapeutic Substance into Peripheral Vein, Percutaneous Approach (ICD-10-PCS; principal; 2018-08-08)
DX: D50.8 Other iron deficiency anemias (principal)
CPT/HCPCS: 96365; J1756; J7050; 96366

== ENCOUNTER → 2018-08-08 | Outpatient (CLI) | payer OTHER, MEDICARE ==
[2018-08-08 11:05] LABS: HEMATOCRIT 18.9 % (37.9-51.0); MEAN CORPUSCULAR HEMOGLOBIN 28.4 pg (27.0-33.4); MEAN CORPUSCULAR HGB CONC 33.5 g/dL (32.0-36.0); MEAN CORPUSCULAR VOLUME 85 fl (80-97); PLATELET COUNT 181 10^3/uL (150-450); RED BLOOD COUNT 2.23 10^6/uL (4.35-5.55); RED CELL DISTRIBUTION WIDTH 16.2 % (11.5-14.0); WHITE BLOOD COUNT 4.7 10^3/uL (4.0-10.5)
[2018-08-08 11:07] LABS: HEMOGLOBIN 6.3 g/dL (13.5-17.0)
[2018-08-08 11:26] LABS: ANION GAP 11 (5-19); BLOOD UREA NITROGEN 52 mg/dL (7-20); CALCIUM 8.9 mg/dL (8.4-10.2); CARBON DIOXIDE 19 mmol/L (22-30); CHLORIDE 112 mmol/L (98-107); GLUCOSE 149 mg/dL (75-110); IRON(TIBC) 564.3 ug/dL (49-181); POTASSIUM 4.7 mmol/L (3.6-5.0); SODIUM 141.6 mmol/L (137-145)
== END ==
LOC: OD 10:23
PROVIDERS: ATTEND Internal Medicine Nephrology
DX: N18.4 Chronic kidney disease, stage 4 (severe) (principal); R80.9 Proteinuria, unspecified; E87.6 Hypokalemia; D64.9 Anemia, unspecified
CPT/HCPCS: 36415; 80048; 82728; 83540; 83550; 85027

== ENCOUNTER → 2018-08-12 | Outpatient (CLI) | payer OTHER, MEDICARE ==
[2018-08-12 12:29] LABS: ABSOLUTE EOSINOPHILS # (AUTO) 0.2 10^3/uL (0.0-0.6); ABSOLUTE LYMPHOCYTES (AUTO) 0.8 10^3/uL (0.5-4.7); ABSOLUTE MONOCYTES (AUTO) 0.4 10^3/uL (0.1-1.4); ABSOLUTE NEUT (AUTO) 3.6 10^3/uL (1.7-8.2); BASOPHILS % (AUTO) 0.6 % (0-2); EOSINOPHILS % (AUTO) 4.5 % (0-6); HEMATOCRIT 19.1 % (37.9-51.0); LYMPHOCYTES % (AUTO) 15.6 % (13-45); MEAN CORPUSCULAR HEMOGLOBIN 28.5 pg (27.0-33.4); MEAN CORPUSCULAR HGB CONC 33.6 g/dL (32.0-36.0); MEAN CORPUSCULAR VOLUME 85 fl (80-97); MONOCYTES % (AUTO) 7.5 % (3-13); PLATELET COUNT 210 10^3/uL (150-450); RED BLOOD COUNT 2.24 10^6/uL (4.35-5.55); RED CELL DISTRIBUTION WIDTH 16.1 % (11.5-14.0); SEGMENTED NEUTROPHILS % (AUTO) 71.8 % (42-78); TOTAL CELLS COUNTED % (AUTO) 100 %
[2018-08-12 12:40] LABS: ANION GAP 9 (5-19); BLOOD UREA NITROGEN 51 mg/dL (7-20); CALCIUM 8.8 mg/dL (8.4-10.2); CARBON DIOXIDE 21 mmol/L (22-30); CHLORIDE 112 mmol/L (98-107); GLUCOSE 136 mg/dL (75-110); POTASSIUM 4.9 mmol/L (3.6-5.0); SODIUM 141.8 mmol/L (137-145)
[2018-08-12 13:35] LABS: HEMOGLOBIN 6.4 g/dL (13.5-17.0)
== END ==
LOC: OD 11:04
PROVIDERS: ATTEND Internal Medicine Nephrology
DX: I12.9 Hypertensive chronic kidney disease with stage 1 through stage 4 chronic kidney disease, or unspecified chronic kidney disease (principal); N18.4 Chronic kidney disease, stage 4 (severe); D64.9 Anemia, unspecified
CPT/HCPCS: 36415; 80048; 85025

== ENCOUNTER → 2018-09-02 | Outpatient (CLI) | payer OTHER, MEDICARE ==
[2018-09-02 10:54] LABS: HEMATOCRIT 29.2 % (37.9-51.0); HEMOGLOBIN 9.8 g/dL (13.5-17.0); MEAN CORPUSCULAR HEMOGLOBIN 28.7 pg (27.0-33.4); MEAN CORPUSCULAR HGB CONC 33.6 g/dL (32.0-36.0); MEAN CORPUSCULAR VOLUME 86 fl (80-97); PLATELET COUNT 171 10^3/uL (150-450); RED BLOOD COUNT 3.41 10^6/uL (4.35-5.55); RED CELL DISTRIBUTION WIDTH 16.1 % (11.5-14.0); WHITE BLOOD COUNT 6.6 10^3/uL (4.0-10.5)
[2018-09-02 12:17] LABS: ALANINE AMINOTRANSFERASE 20 U/L (21-72); ALBUMIN 3.6 g/dL (3.5-5.0); ALKALINE PHOSPHATASE 92 U/L (38-126); ANION GAP 15 (5-19); ASPARTATE AMINO TRANSFERASE 8 U/L (17-59); BILIRUBIN,DIRECT 0.4 mg/dL (0.0-0.4); BILIRUBIN,TOTAL 0.8 mg/dL (0.2-1.3); BLOOD UREA NITROGEN 55 mg/dL (7-20); CALCIUM 9.1 mg/dL (8.4-10.2); CARBON DIOXIDE 16 mmol/L (22-30); CHLORIDE 113 mmol/L (98-107); GLUCOSE 195 mg/dL (75-110); IRON(TIBC) 68.8 ug/dL (49-181); PHOSPHORUS 6.2 mg/dL (2.5-4.5); POTASSIUM 4.1 mmol/L (3.6-5.0); SODIUM 143.5 mmol/L (137-145); TOTAL PROTEIN 6.8 g/dL (6.3-8.2)
== END ==
LOC: OD 10:17
PROVIDERS: ATTEND Internal Medicine Nephrology
DX: E11.22 Type 2 diabetes mellitus with diabetic chronic kidney disease (principal); I12.9 Hypertensive chronic kidney disease with stage 1 through stage 4 chronic kidney disease, or unspecified chronic kidney disease; N18.4 Chronic kidney disease, stage 4 (severe); D64.9 Anemia, unspecified
CPT/HCPCS: 36415; 80053; 82728; 83540; 83550; 83970; 84100; 85027

== ENCOUNTER → 2018-10-18 | Outpatient (CLI) | payer OTHER, MEDICARE ==
[2018-10-18 15:03] LABS: ANION GAP 18 (5-19); BLOOD UREA NITROGEN 65 mg/dL (7-20); CALCIUM 8.7 mg/dL (8.4-10.2); CARBON DIOXIDE 20 mmol/L (22-30); CHLORIDE 107 mmol/L (98-107); GLUCOSE 257 mg/dL (75-110); IRON(TIBC) 43.5 ug/dL (49-181); PHOSPHORUS 7.9 mg/dL (2.5-4.5); POTASSIUM 4.6 mmol/L (3.6-5.0); SODIUM 144.9 mmol/L (137-145)
== END ==
LOC: OD 13:52
PROVIDERS: ATTEND Internal Medicine Nephrology
DX: N18.4 Chronic kidney disease, stage 4 (severe) (principal); D64.9 Anemia, unspecified; R80.9 Proteinuria, unspecified; E87.5 Hyperkalemia
CPT/HCPCS: 36415; 80048; 82728; 83540; 83550; 83970; 84100

== ENCOUNTER → 2018-10-21 | Outpatient (CLI) | payer OTHER, MEDICARE ==
[2018-10-21 12:32] LABS: ABSOLUTE EOSINOPHILS # (AUTO) 0.1 10^3/uL (0.0-0.6); ABSOLUTE LYMPHOCYTES (AUTO) 0.7 10^3/uL (0.5-4.7); ABSOLUTE MONOCYTES (AUTO) 0.3 10^3/uL (0.1-1.4); ABSOLUTE NEUT (AUTO) 2.7 10^3/uL (1.7-8.2); BASOPHILS % (AUTO) 0.6 % (0-2); EOSINOPHILS % (AUTO) 2.4 % (0-6); HEMATOCRIT 22.4 % (37.9-51.0); MEAN CORPUSCULAR HEMOGLOBIN 28.9 pg (27.0-33.4); MEAN CORPUSCULAR HGB CONC 33.7 g/dL (32.0-36.0); MEAN CORPUSCULAR VOLUME 86 fl (80-97); MONOCYTES % (AUTO) 6.9 % (3-13); PLATELET COUNT 143 10^3/uL (150-450); RED CELL DISTRIBUTION WIDTH 16.3 % (11.5-14.0); SEGMENTED NEUTROPHILS % (AUTO) 72.1 % (42-78); TOTAL CELLS COUNTED % (AUTO) 100 %; WHITE BLOOD COUNT 3.7 10^3/uL (4.0-10.5)
[2018-10-21 17:02] LABS: HEMOGLOBIN 7.5 g/dL (13.5-17.0)
== END ==
LOC: OD 11:17
PROVIDERS: ATTEND Internal Medicine Nephrology
DX: N18.4 Chronic kidney disease, stage 4 (severe) (principal); D64.9 Anemia, unspecified; R80.9 Proteinuria, unspecified; E87.5 Hyperkalemia
CPT/HCPCS: 36415; 85025

== ENCOUNTER → 2018-11-18 | Outpatient (CLI) | payer OTHER, MEDICARE ==
[2018-11-18 10:37] LABS: HEMATOCRIT 23.4 % (37.9-51.0); MEAN CORPUSCULAR HEMOGLOBIN 28.6 pg (27.0-33.4); MEAN CORPUSCULAR VOLUME 84 fl (80-97); PLATELET COUNT 185 10^3/uL (150-450); RED BLOOD COUNT 2.78 10^6/uL (4.35-5.55); RED CELL DISTRIBUTION WIDTH 16.9 % (11.5-14.0); WHITE BLOOD COUNT 5.6 10^3/uL (4.0-10.5)
[2018-11-18 10:40] LABS: APPEARANCE,URINE SLIGHTLY-CLOUDY; BILIRUBIN,URINE NEGATIVE (NEGATIVE); COLOR,URINE YELLOW; GLUCOSE, URINE 150 mg/dL (NEGATIVE); KETONES,URINE NEGATIVE (NEGATIVE); LEUKOCYTE ESTERASE,URINE NEGATIVE (NEGATIVE); NITRITE,URINE NEGATIVE (NEGATIVE); PROTEIN,URINE >=500 mg/dL (NEGATIVE); UROBILINOGEN,URINE NEGATIVE mg/dL (<2.0)
[2018-11-18 11:13] LABS: ANION GAP 13 (5-19); BLOOD UREA NITROGEN 65 mg/dL (7-20); CALCIUM 8.4 mg/dL (8.4-10.2); CARBON DIOXIDE 17 mmol/L (22-30); CHLORIDE 114 mmol/L (98-107); GLUCOSE 113 mg/dL (75-110); PHOSPHORUS 8.4 mg/dL (2.5-4.5); POTASSIUM 3.7 mmol/L (3.6-5.0); SODIUM 143.8 mmol/L (137-145)
== END ==
LOC: OD 10:00
PROVIDERS: ATTEND Physician Assistant Medical
DX: E11.22 Type 2 diabetes mellitus with diabetic chronic kidney disease (principal); N18.5 Chronic kidney disease, stage 5; D64.9 Anemia, unspecified; E87.6 Hypokalemia
CPT/HCPCS: 36415; 80048; 81001; 83970; 84100; 85027

== ENCOUNTER → 2018-11-29 | Outpatient (CLI) | payer OTHER, MEDICARE ==
[2018-11-29 12:08] LABS: HEMATOCRIT 26.4 % (37.9-51.0); HEMOGLOBIN 8.9 g/dL (13.5-17.0); MEAN CORPUSCULAR HEMOGLOBIN 28.8 pg (27.0-33.4); MEAN CORPUSCULAR HGB CONC 33.6 g/dL (32.0-36.0); MEAN CORPUSCULAR VOLUME 86 fl (80-97); PLATELET COUNT 182 10^3/uL (150-450); RED BLOOD COUNT 3.08 10^6/uL (4.35-5.55); WHITE BLOOD COUNT 5.2 10^3/uL (4.0-10.5)
[2018-11-29 12:44] LABS: ANION GAP 13 (5-19); BLOOD UREA NITROGEN 64 mg/dL (7-20); CALCIUM 8.7 mg/dL (8.4-10.2); CARBON DIOXIDE 19 mmol/L (22-30); CHLORIDE 110 mmol/L (98-107); GLUCOSE 112 mg/dL (75-110); IRON(TIBC) 49.7 ug/dL (49-181); PHOSPHORUS 7.2 mg/dL (2.5-4.5); POTASSIUM 4.3 mmol/L (3.6-5.0); SODIUM 141.8 mmol/L (137-145)
== END ==
LOC: OD 11:30
PROVIDERS: ATTEND Internal Medicine Nephrology
DX: N18.4 Chronic kidney disease, stage 4 (severe) (principal); D64.9 Anemia, unspecified; R80.9 Proteinuria, unspecified
CPT/HCPCS: 36415; 80048; 82728; 83540; 83550; 83970; 84100; 85027

== ENCOUNTER → 2018-12-25 | Outpatient (CLI) | payer OTHER, MEDICARE ==
[2018-12-25 10:10] LABS: HEMOGLOBIN 8.1 g/dL (13.5-17.0); MEAN CORPUSCULAR HEMOGLOBIN 29.1 pg (27.0-33.4); MEAN CORPUSCULAR HGB CONC 33.6 g/dL (32.0-36.0); MEAN CORPUSCULAR VOLUME 87 fl (80-97); PLATELET COUNT 180 10^3/uL (150-450); RED BLOOD COUNT 2.77 10^6/uL (4.35-5.55); RED CELL DISTRIBUTION WIDTH 17.6 % (11.5-14.0); WHITE BLOOD COUNT 4.5 10^3/uL (4.0-10.5)
[2018-12-25 10:27] LABS: ANION GAP 15 (5-19); BLOOD UREA NITROGEN 85 mg/dL (7-20); CALCIUM 8.2 mg/dL (8.4-10.2); CARBON DIOXIDE 22 mmol/L (22-30); CHLORIDE 108 mmol/L (98-107); GLUCOSE 85 mg/dL (75-110); PHOSPHORUS 8.7 mg/dL (2.5-4.5); POTASSIUM 4.4 mmol/L (3.6-5.0)
== END ==
LOC: OD 09:42
PROVIDERS: ATTEND Internal Medicine Nephrology
DX: N18.4 Chronic kidney disease, stage 4 (severe) (principal); R80.9 Proteinuria, unspecified; E87.5 Hyperkalemia; D64.9 Anemia, unspecified
CPT/HCPCS: 36415; 80048; 83970; 84100; 85027

== ENCOUNTER → 2019-01-22 | Outpatient (CLI) | payer OTHER, MEDICARE ==
[2019-01-22 10:10] LABS: HEMATOCRIT 22.1 % (37.9-51.0); MEAN CORPUSCULAR HEMOGLOBIN 29.2 pg (27.0-33.4); MEAN CORPUSCULAR VOLUME 86 fl (80-97); PLATELET COUNT 147 10^3/uL (150-450); RED BLOOD COUNT 2.58 10^6/uL (4.35-5.55); RED CELL DISTRIBUTION WIDTH 17.4 % (11.5-14.0); WHITE BLOOD COUNT 5.7 10^3/uL (4.0-10.5)
[2019-01-22 10:32] LABS: ANION GAP 18 (5-19); BLOOD UREA NITROGEN 112 mg/dL (7-20); CALCIUM 8.6 mg/dL (8.4-10.2); CARBON DIOXIDE 18 mmol/L (22-30); CHLORIDE 107 mmol/L (98-107); GLUCOSE 215 mg/dL (75-110); PHOSPHORUS 9.9 mg/dL (2.5-4.5); SODIUM 143.1 mmol/L (137-145)
[2019-01-22 13:51] LABS: HEMOGLOBIN 7.5 g/dL (13.5-17.0)
== END ==
LOC: OD 09:15
PROVIDERS: ATTEND Internal Medicine Nephrology
DX: E11.22 Type 2 diabetes mellitus with diabetic chronic kidney disease (principal); N18.5 Chronic kidney disease, stage 5; R80.9 Proteinuria, unspecified; D64.9 Anemia, unspecified
CPT/HCPCS: 36415; 80048; 83970; 84100; 85027

== ENCOUNTER 2019-02-03 12:07 | Day surgery (SDC) | payer MEDICARE, OTHER ==
[~2019-02-03 12:07] MED LIST: BACITRACIN INJ 50,000 UNIT VIAL ONE; BUPIVACAINE HCL 0.25 % INJ/PF (2.5 MG/1 ML) 30 ML VIAL ONE; CEFAZOLIN 1 GM/D5W RTU 1 GM/50 ML RTUPB IV SCH; DEXAMETHASONE SOD PHOSPHATE INJ 4 MG/1 ML VIAL ONE; FENTANYL CITRATE INJ/PF 100 MCG/2 ML AMPUL ONE; HEPARIN SOD (PORCINE) 1,000 UNIT/ML 1 ML VIAL ONE; LIDOCAINE 0.5% INJ-PF (5 MG/ML) 50 ML SDV ONE; MIDAZOLAM 2 MG/2 ML INJ ONE; ONDANSETRON HCL INJ/PF 4 MG/2 ML SDV ONE; PROPOFOL INJ 200 MG/20 ML VIAL IV ONE
[2019-02-03] MEDS ORDERED: SUCCINYLCHOLINE CHLORIDE INJ 200 MG/10 ML VIAL ONE (12:46)
[2019-02-03] MEDS ORDERED: GLYCOPYRROLATE 1 MG/5 ML SYRINGE ONE (12:46)
[2019-02-03] MEDS ORDERED: ROCURONIUM BROMIDE INJ 50 MG/5 ML VIAL IV ONE (12:46)
[2019-02-03] MEDS ORDERED: SUGAMMADEX SODIUM 200 MG/2 ML SDV IV ONE (12:49)
[2019-02-03] MEDS ORDERED: EPHEDRINE SULFATE INJ 50 MG/1 ML AMPULE ONE (12:52)
[2019-02-03] MEDS ORDERED: CEFAZOLIN 1 GM/D5W RTU 1 GM/50 ML RTUPB IV ONE (12:58)
--- NOTE | 2019-02-03 13:43 | RADIOLOGY REPORT (SQ) ---
EXAM DESCRIPTION: CHEST SINGLE VIEW COMPLETED DATE/TIME: 02/03/2019 1:05 pm REASON FOR STUDY: PREOP COMPARISON: 07/10/2018 EXAM PARAMETERS: NUMBER OF VIEWS: One view. TECHNIQUE: Single frontal radiographic view of the chest acquired. RADIATION DOSE: NA LIMITATIONS: None. FINDINGS: LUNGS AND PLEURA: No opacities, masses or pneumothorax. No pleural effusion. MEDIASTINUM AND HILAR STRUCTURES: No masses. Contour normal. HEART AND VASCULAR STRUCTURES: Heart normal in size. Normal vasculature. BONES: No acute findings. HARDWARE: None in the chest. OTHER: No other significant finding. IMPRESSION: NO ACUTE RADIOGRAPHIC FINDING IN THE CHEST. TECHNICAL DOCUMENTATION: JOB ID: [id number] [employer]- All Rights Reserved Reading location - IP/workstation name: [email or web address]
[2019-02-03 13:49] LABS: HEMATOCRIT 19.1 % (37.9-51.0); MEAN CORPUSCULAR HEMOGLOBIN 29.1 pg (27.0-33.4); MEAN CORPUSCULAR HGB CONC 33.7 g/dL (32.0-36.0); MEAN CORPUSCULAR VOLUME 86 fl (80-97); PLATELET COUNT 179 10^3/uL (150-450); RED BLOOD COUNT 2.21 10^6/uL (4.35-5.55); RED CELL DISTRIBUTION WIDTH 17.2 % (11.5-14.0)
[2019-02-03 13:51] LABS: HEMOGLOBIN 6.4 g/dL (13.5-17.0)
[2019-02-03 14:07] LABS: ALANINE AMINOTRANSFERASE 20 U/L (21-72); ALBUMIN 3.6 g/dL (3.5-5.0); ALKALINE PHOSPHATASE 81 U/L (38-126); ANION GAP 14 (5-19); ASPARTATE AMINO TRANSFERASE 6 U/L (17-59); BILIRUBIN,DIRECT 0.5 mg/dL (0.0-0.4); BILIRUBIN,TOTAL 0.7 mg/dL (0.2-1.3); BLOOD UREA NITROGEN 83 mg/dL (7-20); CALCIUM 8.7 mg/dL (8.4-10.2); CARBON DIOXIDE 20 mmol/L (22-30); CHLORIDE 108 mmol/L (98-107); GLUCOSE 121 mg/dL (75-110); POTASSIUM 3.7 mmol/L (3.6-5.0); SODIUM 142.4 mmol/L (137-145); TOTAL PROTEIN 6.1 g/dL (6.3-8.2)
[2019-02-03] MEDS ORDERED: MEPERIDINE HCL/PF INJ 25 MG/1 ML DISP.SYRIN IV PRN (15:30)
[2019-02-03] MEDS ORDERED: PROMETHAZINE HCL INJ 25 MG/1 ML VIAL IV PRN ×2 (15:30)
[2019-02-03] MEDS ORDERED: ONDANSETRON HCL INJ/PF 4 MG/2 ML SDV IV PRN (15:30)
[2019-02-03] MEDS ORDERED: MORPHINE SULFATE 10 MG/ML INJ IV PRN (15:30)
[2019-02-03] MEDS ORDERED: FENTANYL CITRATE INJ/PF 100 MCG/2 ML AMPUL IV PRN ×3 (15:30)
[2019-02-03] MEDS ORDERED: DIPHENHYDRAMINE HCL 50 MG/ML VIAL IV PRN (15:30)
--- NOTE | 2019-02-03 16:29 | Discharge Summary ---
Discharge Summary (SDC) - Discharge Final Diagnosis: #1 end-stage renal disease. 2. CLL. 3. Diabetes mellitus type 2. 4. Hypertension. Date of Surgery: 02/03/19 Discharge Date: 02/03/19 Condition: Fair Treatment or Instructions: Discharge home [after recovery per ASU criteria]. Diet , [renal], diabetic, as tolerated, when fully awake advance as tolerated. Activities within moderation encouraged. Follow up in my office by appointment in about [1 week]. Call for appointment. Leave wounds [covered], [keep clean and dry, until office visit in 1 week]. Hold of on school/work [until evaluation in office]. Meds per med rec. Percocet. May shower [in 48 hrs], [try to keep operated area as dry as possible]. Prescriptions: Oxycodone HCl/Acetaminophen [Percocet 5-325 mg Tablet] 1 tab PO ASDIR PRN #15 tab PRN Reason: Referrals: SHERRY NARAYAN MD [Primary Care Provider] -
--- NOTE | 2019-02-03 16:31 | Operative Report ---
Operative Report DATE OF SURGERY: 02/03/19 PREOPERATIVE DIAGNOSIS: #1 end-stage renal disease. 2. CLL. 3. Diabetes dada litus type 2. 4. Hypertension. POSTOPERATIVE DIAGNOSIS: #1 end-stage renal disease. 2. CLL. 3. Diabetes mellitus type 2. 4. Hypertension. OPERATION: Laparoscopic insertion of peritoneal dialysis catheter. SURGEON: ZHANG FELIPE BOOKMAKER'S CLERK: None. ANESTHESIA: GA TISSUE REMOVED OR ALTERED: Not applicable. COMPLICATIONS: None. ESTIMATED BLOOD LOSS: 5 mL. INTRAOPERATIVE FINDINGS: Of a fairly wide open peritoneal cavity. Scars noted between peritoneum and sigmoid suggestive of previous episodes of diverticulitis. Scars noted of the right lower quadrant area in the vicinity of the cecum. No obvious inguinal or umbilical hernia. Not seen. The liver left lobe looks fine. The omentum not excessive and well. Ingress of heparinized solution and egress of same. PROCEDURE: After obtaining informed consent and going over the procedure with [the patient and his family], he was taken to the operating room, [he was] anesthetized and intubated. The abdomen was prepped and draped in the usual sterile fashion. After the universal timeout, in which it was verified that the patient received IV antibiotic, the procedure commenced. The topographical location for the peritoneal dialysis catheter was sketched by applying it to the anterior abdominal wall. The reference point was the pubic symphysis the coil of the catheter, just beneath this level. In this way the position for the cuffs and the external catheter exit were ascertained and marked. The catheter was now replaced in antibiotic containing solution. An entry into the abdomen was sketched just to the right of the midline and transversely in the epigastrium. Local anesthesia was infiltrated. A 1 cm, transverse incision was made with a [15 blade scalpel]. Dissection now proceeded to the medial aspect of the right rectus sheath. This was opened and the muscle gently reflected. The posterior rectus sheath and peritoneum were opened between hemostats and entry was gained to the peritoneal cavity. This allowed introduction of a 5 mm laparoscopic port. The abdomen was now insufflated with carbon dioxide up to a maximum pressure of 12 mm of mercury. T he camera was inserted and a good view gained of the abdomen. Photographs were taken. Local anesthesia was now infiltrated and an incision made in respect to the curve of the catheter. A 1 cm transverse incision was made at this point and dissection proceeded down to the rectus sheath. This was opened and a Veress needle on a reducing sleeve were were now introduced through the rectus muscle and the manipulated down to about 4 cm inferior to the incision. The peritoneum was now entered and the Veress needle removed. The internal cannula was now placed under direct vision. A swan neck peritoneal dialysis catheter was now placed on a stylette. Great care was taken to keep the orientation in reference to the white line on the catheter. It was now inserted into the peritoneal cavity under direct vision, through the introducer. As the catheter entered the abdomen the stylette was slowly withdrawn allowing it to assume its normal orientation and shape within the peritoneal cavity. Both the stylet and introducer were removed so as to place the internal cuff about 3 cm from the entry point of the peritoneal cavity, and within the rectus sheath. This was verified with respect to the incision. The external curve of the catheter was allowed to form precisely at the level of the incision. Externally the catheter was affixed to a Alex stylette which was now used to tunnel the catheter in the subcutaneous tissues to its exit site where it was now used to exit the skin. The catheter orientation and position and, particularly the 2 cuffs of the catheter were verified. Once this was done the external portion of the catheter was affixed to a Leur lock adapter and connected to a sterile IV tubing. This allowed introduction of 1 L of heparinized saline into the peritoneal cavity via the catheter. This occurred with brisk and free flow of fluid into the peritoneal cavity. Once the entire liter had been infused, the bag was now placed beneath the level of the patient and very satisfactory outflow was observed. With this in place, the camera and the catheter were removed and abdomen desufflated. The subcutaneous tissue in each incision was closed with interr upted 3-0 PDS. The skin in each incision was closed using interrupted and continuous sutures of 4-0 Monocryl. Once about 800 mils of the Infusaid had been passively removed from the abdomen, the catheter was flushed with 10 mL of heparinized solution and capped. The bio a patch was applied at the exit site. Benzoin was applied and Steri-Strips used to reinforce each of the wounds. It was also used to help anchor the Biopatch. It was also used to anchor the main catheter so that any external pressure would not dislodge the catheter. Dry gauze and tape applied and the procedure concluded.
[2019-02-03 18:34] VITALS: BP 173/83
--- NOTE | 2019-02-04 00:15 | EKG REPORT ---
SEVERITY:- ABNORMAL ECG - SINUS RHYTHM LVH WITH SECONDARY REPOLARIZATION ABNORMALITY BORDERLINE PROLONGED QT INTERVAL : Confirmed by: Leann Talamantes 04-Feb-2019 00:14:14
== END 2019-02-03 18:35 | disposition home or self-care (01) ==
LOC: OROUT 12:07
PROVIDERS: ATTEND Surgery
DX: I13.2 Hypertensive heart and chronic kidney disease with heart failure and with stage 5 chronic kidney disease, or end stage renal disease (principal); I50.9 Heart failure, unspecified; N18.6 End stage renal disease; E11.22 Type 2 diabetes mellitus with diabetic chronic kidney disease; C91.90 Lymphoid leukemia, unspecified not having achieved remission
CPT/HCPCS: 86900; 86901; 36415; 86850; 82962; 85027; 80076; 80048; 86920; 71045; 93005; 93010; 49324; J2250; J3490 ×5; J0690; J1100; J3010; J1644; J0330; J2405; J2704; J1642; 790

== ENCOUNTER → 2019-02-10 | Outpatient (CLI) | payer OTHER, MEDICARE ==
[2019-02-11 08:48] LABS: HEPATITIS C VIRUS AB <0.1 s/co ratio (0.0-0.9)
[2019-02-11 09:48] LABS: HEPATITIS B CORE AB TOT Negative (Negative); HEPATITS B SURFACE ANTIGEN Negative (Negative)
== END ==
LOC: OD 12:00
PROVIDERS: ATTEND Internal Medicine Nephrology
DX: E11.22 Type 2 diabetes mellitus with diabetic chronic kidney disease (principal); I12.0 Hypertensive chronic kidney disease with stage 5 chronic kidney disease or end stage renal disease; N18.5 Chronic kidney disease, stage 5
CPT/HCPCS: 36415; 86704; 86803; 86804; 87340

== ENCOUNTER 2019-02-15 12:39 | Emergency (ER) | payer OTHER, MEDICARE ==
[2019-02-15] MEDS ORDERED: NORMAL SALINE 250 ML IV PRN (13:14)
--- NOTE | 2019-02-15 13:19 | ER Document Report ---
ED Medical Screen (RME) - General Chief Complaint: Abnormal Lab Results Stated Complaint: ABNORMAL LABS Time Seen by Provider: 02/15/19 13:09 Primary Care Provider: Ailyn RICO MD [Primary Care Provider] - Follow up as needed Notes: 68-year-old peritoneal dialysis patient was called and told his hemoglobin was 6.4 and that he needed to come to the emergency room to be transfused. He had lab work done on 02/03/2019 and at that time had a hemoglobin of 6.4. He did not get transfused, the lab work was done preop before a peritoneal dialysis catheter was placed. It sounds like the procedure was done despite the hemoglobin of 6.4, and possibly the need for being transfused was inadvertently overlooked due to the procedure that was performed that day. He had lab work done again yesterday showing a hemoglobin of 6.4 which is unchanged over the past 2 weeks. He is feeling tired rundown, conjunctiva are pale. He does make plenty of urine. I have greeted and performed a rapid initial assessment of this patient. A comprehensive ED assessment and evaluation of the patient, analysis of test results and completion of the medical decision making process will be conducted by additional ED providers. TRAVEL OUTSIDE OF THE [place] IN LAST 30 DAYS: No - Related Data Allergies/Adverse Reactions: No Known Allergies Allergy (Verified 02/15/19 13:09) Past Medical History - Social History Frequency of alcohol use: None Drug Abuse: None - Past Medical History Cardiac Medical History: Reports: Hx Congestive Heart Failure, Hx Hypercholesterolemia, Hx Hypertension Denies: Hx Coronary Artery Disease, Hx Heart Attack Pulmonary Medical History: Denies: Hx Asthma, Hx Bronchitis, Hx COPD, Hx Pneumonia Neurological Medical History: Denies: Hx Cerebrovascular Accident, Hx Seizures Endocrine Medical History: Reports: Hx Diabetes Mellitus Type 2 Renal/ Medical History: Reports: Hx End Stage Renal Disease, Hx Peritoneal Dialysis - last on sunday GI Medical History: Reports: Hx Hiatal Hernia. Denies: Hx Hepatitis, Hx Ulcer Musculoskeltal Medical History: Denies Hx Arthritis Infectious Medical History: Denies: Hx Hepatitis Past Surgical History: Reports: Hx Abdominal Surgery - hernia repair, Hx Appendectomy, Hx Cholecystectomy, Hx Kidney (Renal Surgery) - right kidney-half removed, Hx Oral Surgery, Hx Orthopedic Surgery - laminectomy, knee. Denies: Hx Open Heart Surgery, Hx Pacemaker - Immunizations Hx Diphtheria, Pertussis, Tetanus Vaccination: Yes History of Influenza Vaccine for 08/2017 - 01/2018 Season: No Influenza Administration Date for 08/2017 - 01/2018 Season: 08/19/18 Physical Exam - Vital signs Vitals: Temp Pulse Resp BP Pulse Ox 97.8 F 79 18 195/81 H 96 02/15/19 12:51 02/15/19 12:51 02/15/19 12:51 02/15/19 12:51 02/15/19 12:51 Course - Vital Signs Vital signs: Temp Pulse Resp BP Pulse Ox 97.8 F 79 18 195/81 H 96 02/15/19 12:51 02/15/19 12:51 02/15/19 12:51 02/15/19 12:51 02/15/19 12:51 Doctor's Discharge - Discharge Referrals: Ailyn RICO MD [Primary Care Provider] - Follow up as needed
[2019-02-15 15:47] LABS: ABSOLUTE BASOPHILS # (AUTO) 0.1 10^3/uL (0.0-0.2); ABSOLUTE EOSINOPHILS # (AUTO) 0.2 10^3/uL (0.0-0.6); ABSOLUTE LYMPHOCYTES (AUTO) 0.8 10^3/uL (0.5-4.7); ABSOLUTE MONOCYTES (AUTO) 0.3 10^3/uL (0.1-1.4); ABSOLUTE NEUT (AUTO) 3.6 10^3/uL (1.7-8.2); BASOPHILS % (AUTO) 1.2 % (0-2); EOSINOPHILS % (AUTO) 3.1 % (0-6); HEMATOCRIT 18.5 % (37.9-51.0); LYMPHOCYTES % (AUTO) 15.6 % (13-45); MEAN CORPUSCULAR HEMOGLOBIN 28.5 pg (27.0-33.4); MEAN CORPUSCULAR HGB CONC 33.7 g/dL (32.0-36.0); MEAN CORPUSCULAR VOLUME 85 fl (80-97); MONOCYTES % (AUTO) 6.7 % (3-13); PLATELET COUNT 207 10^3/uL (150-450); RED BLOOD COUNT 2.18 10^6/uL (4.35-5.55); SEGMENTED NEUTROPHILS % (AUTO) 73.4 % (42-78); TOTAL CELLS COUNTED % (AUTO) 100 %; WHITE BLOOD COUNT 4.9 10^3/uL (4.0-10.5)
[2019-02-15 15:51] LABS: HEMOGLOBIN 6.2 g/dL (13.5-17.0); INTERNATIONAL RATION (INR) 1.04; PROTHROMBIN TIME 14.1 SEC (11.4-15.4)
[2019-02-15 15:57] LABS: ALANINE AMINOTRANSFERASE 15 U/L (21-72); ALBUMIN 3.1 g/dL (3.5-5.0); ALKALINE PHOSPHATASE 74 U/L (38-126); ANION GAP 11 (5-19); ASPARTATE AMINO TRANSFERASE 8 U/L (17-59); BILIRUBIN,DIRECT 0.4 mg/dL (0.0-0.4); BILIRUBIN,TOTAL 0.6 mg/dL (0.2-1.3); BLOOD UREA NITROGEN 76 mg/dL (7-20); CALCIUM 8.9 mg/dL (8.4-10.2); CARBON DIOXIDE 20 mmol/L (22-30); CHLORIDE 109 mmol/L (98-107); GLUCOSE 123 mg/dL (75-110); POTASSIUM 3.9 mmol/L (3.6-5.0); SODIUM 140.1 mmol/L (137-145); TOTAL PROTEIN 5.8 g/dL (6.3-8.2)
[2019-02-15 21:49] LABS: HEMATOCRIT 20.7 % (37.9-51.0); MEAN CORPUSCULAR HGB CONC 34.2 g/dL (32.0-36.0); MEAN CORPUSCULAR VOLUME 85 fl (80-97); PLATELET COUNT 211 10^3/uL (150-450); RED BLOOD COUNT 2.44 10^6/uL (4.35-5.55); RED CELL DISTRIBUTION WIDTH 16.1 % (11.5-14.0); WHITE BLOOD COUNT 5.3 10^3/uL (4.0-10.5)
[2019-02-15 21:52] LABS: HEMOGLOBIN 7.1 g/dL (13.5-17.0)
--- NOTE | 2019-02-15 23:03 | ER Document Report ---
Entered by TRAVIS HUSSEIN SCRIBE 02/15/19 0902 Acting as scribe for:JORGE TAMAYO DO ED General - General Chief Complaint: Abnormal Lab Results Stated Complaint: ABNORMAL LABS Time Seen by Provider: 02/15/19 14:45 Primary Care Provider: Ailyn PACE MD [Primary Care Provider] - Follow up as needed Notes: Patient is a 68-year-old male with type II diabetes, hypertension, hyperlipide [place], chronic kidney disease (on periotneal dialysis), remote history of CLL (on chemo) was sent to the emergency department due to abnormal blood work. Patient was started on periotneal dialysis and had blood work done on 02/03/19. He states he was called today and was told his hemoglobin was 6.4 and instructed to come to the emergency department. Patient also complains of weakness and dark tarry s tools. He denies any abdominal pain, hematemesis, abdominal pain or fevers. Of significance, patient states he has a history of GI bleeds and further reports being sent to [facility] where he was admitted to the hospital and had a colonoscopy done. He states he does not remember the source of the bleeding. 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 Jules in [place]. TRAVEL OUTSIDE OF THE [place] IN LAST 30 DAYS: No - Related Data Allergies/Adverse Reactions: No Known Allergies Allergy (Verified 02/15/19 13:09) Past Medical History - General Information source: Patient - Social History Smoking Status: Former Smoker Cigarette use (# per day): No Chew tobacco use (# tins/day): No Smoking Education Provided: No Frequency of alcohol use: None Drug Abuse: None Family History: Reviewed & Not Pertinent Patient has suicidal ideation: No Patient has homicidal ideation: No - Past Medical History Cardiac Medical History: Reports: Hx Congestive Heart Failure, Hx Hypercholes terolemia, Hx Hypertension Endocrine Medical History: Reports: Hx Diabetes Mellitus Type 2 Renal/ Medical History: Reports: Hx End Stage Renal Disease, Hx Peritoneal Dialysis - last on sunday GI Medical History: Reports: Hx Hiatal Hernia Past Surgical History: Reports: Hx Abdominal Surgery - hernia repair, Hx Appendectomy, Hx Cholecystectomy, Hx Kidney (Renal Surgery) - right kidney-half removed, Hx Oral Surgery, Hx Orthopedic Surgery - laminectomy, knee - Immunizations Hx Diphtheria, Pertussis, Tetanus Vaccination: Yes Review of Systems - Review of Systems Constitutional: See HPI, Weakness EENT: No symptoms reported Cardiovascular: No symptoms reported Respiratory: No symptoms reported Gastrointestinal: See HPI, Black stools Genitourinary: No symptoms reported Male Genitourinary: No symptoms reported Musculoskeletal: No symptoms reported Skin: No symptoms reported Hematologic/Lymphatic: No symptoms reported Neurological/Psychological: No symptoms reported -: Yes All other systems reviewed and negative Physical Exam - Vital signs Vitals: Temp Pulse Resp BP Pulse Ox 97.8 F 79 18 195/81 H 96 02/15/19 12:51 02/15/19 12:51 02/15/19 12:51 02/15/19 12:51 02/15/19 12:51 - Notes Notes: GENERAL: Alert, interacts well. No acute distress. HEAD: Normocephalic, atraumatic. EYES: Pupils equal, round, and reactive to light. Extraocular movements intact. ENT: Oral mucosa moist, tongue midline. NECK: Full range of motion. Supple. Trachea midline. LUNGS: Clear to auscultation bilaterally, no wheezes, rales, or rhonchi. No respiratory distress. HEART: Regular rate and rhythm. No murmurs, gallops, or rubs. ABDOMEN: Soft, port in good position, no signs of infection, mildly tender to palpation, no guarding, rigidity, or rebound. Non-distended. Bowel sounds present in all 4 quadrants. EXTREMITIES: Moves all 4 extremities spontaneously. NEUROLOGICAL: Alert and oriented x3. Normal speech. PSYCH: Normal affect, normal mood. SKIN: Warm, dry, normal turgor. No rashes or lesions noted. RECTAL: Sphincter tone intact. Dark greenish black stool, no bright red blood. Bedside heme- occult is negative. Course - Re-evaluation Re-evalutation: 02/15/19 22:55 Initial hemoglobin was 6.2, repeat hemoglobin is 7.1, patient does have chronic renal failure. Patient is doing peritoneal dialysis. He reports no symptoms of spontaneous bacterial peritonitis. Patient was discussed with hospitalist for possible admission to hospital to receive 2 units of blood considering his history of renal failure, peritoneal dialysis and congestive heart failure. Both Dr. Sexton and Dr. Zhao feel that in this dialysis patient 1 unit will be sufficient for now and that Dr. Pace can decide as an outpatient whether he would like further blood given at a later date. Patient is heme negative. Patient is enthusiastic about the idea of going home. I did attempt to get into contact with Dr. 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 Patient will be discharged to home. Patient was ambulated and tolerated ambulation well and was discharged to home to follow-up with Dr. Pace within the next week. - Vital Signs Vital signs: Temp Pulse Resp BP Pulse Ox 98.4 F 78 20 185/79 H 95 02/15/19 20:31 02/15/19 20:31 02/15/19 20:31 02/15/19 20:31 02/15/19 20:31 - Laboratory Result Diagrams: 02/15/19 21:30 02/15/19 15:33 Laboratory results interpreted by me: 02/15/19 02/15/19 02/15/19 15:33 15:33 15:33 RBC 2.18 L Hgb 6.2 L Hct 18.5 L RDW 17.0 H Chloride 109 H Carbon Dioxide 20 L BUN 76 H Creatinine 8.07 H Est GFR ( Amer) 8 L Est GFR (Non-Af Amer) 7 L Glucose 123 H AST 8 L ALT 15 L Total Protein 5.8 L Albumin 3.1 L Crossmatch See Detail 02/15/19 21:30 RBC 2.44 L Hgb 7.1 L Hct 20.7 L RDW 16.1 H Chloride Carbon Dioxide BUN Creatinine Est GFR ( Amer) Est GFR (Non-Af Amer) Glucose AST ALT Total Protein Albumin Crossmatch Discharge - Discharge Clinical Impression: Renal failure treated with peritoneal dialysis Anemia, chronic renal failure Qualifiers: Chronic kidney disease stage: stage 5 Qualified Code(s): N18.5 - Chronic kidney disease, stage 5; D63.1 - Anemia in chronic kidney disease Condition: Stable Disposition: HOME, SELF-CARE Additional Instructions: Today your hemoglobin was 6.2. We gave you 1 unit of blood. Your hemoglobin is now 7.1. Please call Dr. Pace's office Sunday morning to discuss these results and find out if he would like you to get more blood in the next week. He is welcome to send you back to the emergency department for further transfusions but please also be aware that we have in infusion center where he may also schedule you to receive blood transfusions as an outpatient. Referrals: Ailyn PACE MD [Primary Care Provider] - Follow up as needed I personally performed the services described in the documentation, reviewed and edited the documentation which was dictated to the scribe in my presence, and it accurately records my words and actions.
[2019-02-15 23:09] VITALS: BP 179/77
== END 2019-02-15 23:09 | disposition home or self-care (01) ==
LOC: ER 12:39
DX: I13.2 Hypertensive heart and chronic kidney disease with heart failure and with stage 5 chronic kidney disease, or end stage renal disease (principal); N18.5 Chronic kidney disease, stage 5; D63.1 Anemia in chronic kidney disease; I50.9 Heart failure, unspecified; R53.1 Weakness; E78.00 Pure hypercholesterolemia, unspecified; Z99.2 Dependence on renal dialysis; Z90.49 Acquired absence of other specified parts of digestive tract; Z85.6 Personal history of leukemia
CPT/HCPCS: 99283; 86900; 86901; 36415; 36430; 86850; 83735; 85025; 85027; 85610; 80053; 86920; P9016

== ENCOUNTER → 2019-03-11 | Outpatient (CLI) | payer OTHER ==
--- NOTE | 2019-03-11 10:26 | RADIOLOGY REPORT (SQ) ---
EXAM DESCRIPTION: DUPLEX ART/PRASANTH FLOW COMPLETE COMPLETED DATE/TIME: 03/11/2019 10:13 am REASON FOR STUDY: HTN (I10) I10 ESSENTIAL (PRIMARY) HYPERTENSION COMPARISON: None. TECHNIQUE: Realtime and static grayscale images acquired. Selected color Doppler, velocities and spe ctral images recorded. LIMITATIONS: None. FINDINGS: RIGHT KIDNEY: RENAL ARTERY VELOCITIES: 0.71 cm/sec. Segmental artery velocity 0.31 cm/sec. RENAL VEIN: Color doppler flow present, patent. VELOCITY RATIO: 0.75. Normal waveforms. KIDNEY: Normal size. No significant pathology. LEFT KIDNEY: RENAL ARTERY VELOCITIES: 0.54 cm/sec. Segmental artery velocity 0.29 cm/sec. RENAL VEIN: Color doppler flow present, patent. VELOCITY RATIO: 0.6. Normal waveforms. KIDNEY: Normal size. No significant pathology. BLADDER: Normal. OTHER: Heterogenous enlarged prostate, measuring 2.6 x 4.2 x 5.2 cm. Some free fluid is present seco ndary to peritoneal dialysis. IMPRESSION: NO DOPPLER EVIDENCE OF HEMODYNAMICALLY SIGNIFICANT RENAL ARTERY STENOSIS. OTHER INCIDEN RAMSES FINDINGS ABOVE. COMMENT: NORMAL RENAL ARTERY/AORTA VELOCITY RATIO IS LESS THAN OR EQUAL TO 3.5. TECHNICAL DOCUMENTATION: JOB ID: [id number] [employer]- All Rights Reserved Reading location - IP/workstation name: [email or web address]
== END ==
LOC: RAD 09:15
PROVIDERS: ATTEND Family Medicine
DX: I10 Essential (primary) hypertension (principal)
CPT/HCPCS: 93975

== ENCOUNTER → 2019-07-21 | Outpatient (CLI) | payer OTHER, MEDICARE ==
[2019-07-21 09:45] LABS: VANCOMYCIN,TROUGH 15.3 ug/mL (5.0-20.0)
== END ==
LOC: LAB 08:55
PROVIDERS: ATTEND Internal Medicine Nephrology
DX: K65.9 Peritonitis, unspecified (principal)
CPT/HCPCS: 80202

== ENCOUNTER → 2019-08-06 | Outpatient (CLI) | payer MEDICARE ==
[2019-08-06 18:19] LABS: FLUID APPEARANCE CLEAR; FLUID COLOR STRAW; FLUID SOURCE ABDOMEN; FLUID TYPE PERITONEAL; FLUID VISCOSITY LIQUID
== END ==
LOC: LB 17:21
PROVIDERS: ATTEND Internal Medicine Nephrology
DX: K65.9 Peritonitis, unspecified (principal)
CPT/HCPCS: 89050

== ENCOUNTER 2019-09-15 11:40 | Day surgery (SDC) | payer MEDICARE, OTHER ==
--- NOTE | 2019-09-15 13:14 | EKG REPORT ---
SEVERITY:- ABNORMAL ECG - SINUS RHYTHM LEFT VENTRICULAR HYPERTROPHY : Confirmed by: Sage Hare MD 15-Sep-2019 13:13:38
[2019-09-15 13:16] LABS: HEMATOCRIT 33.5 % (37.9-51.0); HEMOGLOBIN 11.4 g/dL (13.5-17.0); MEAN CORPUSCULAR HEMOGLOBIN 30.5 pg (27.0-33.4); MEAN CORPUSCULAR VOLUME 90 fl (80-97); PLATELET COUNT 123 10^3/uL (150-450); RED BLOOD COUNT 3.74 10^6/uL (4.35-5.55); RED CELL DISTRIBUTION WIDTH 15.8 % (11.5-14.0); WHITE BLOOD COUNT 5.2 10^3/uL (4.0-10.5)
[2019-09-15] MEDS ORDERED: CEFAZOLIN INJ 1 GM VIAL ONE (13:31)
[2019-09-15] MEDS ORDERED: CEFAZOLIN SODIUM 1 GM in DEXTROSE 5%-WATER 50 ML IV PRN (13:32)
--- NOTE | 2019-09-15 13:32 | PDOC H&P ---
General Chief Complaint: The patient was referred across for removal of his peritoneal dialysis catheter. The test culture showed yeast and is therefore almost certainly nonsalvageable. - Diagnosis (1) Peritoneal dialysis catheter exit site infection Is this a Current Diagnosis?: Yes (2) End stage renal disease Is this a Current Diagnosis?: Yes (3) Diabetes mellitus type 2 in nonobese Is this a Current Diagnosis?: Yes (4) Chronic lymphocytic leukemia Is this a Current Diagnosis?: Yes (5) Hypertension Is this a Current Diagnosis?: Yes - Current Medications/Allergies Home Medications: Aspirin [Adult Low Dose Aspirin EC] 81 mg PO DAILY 11/12/17 Carvedilol [Coreg 25 mg Tablet] 0.5 tab PO BID 11/12/17 Cholecalciferol (Vitamin D3) [Vitamin D3] 1,000 unit PO BID 11/12/17 Clonidine HCl [Catapres 0.2 mg Tablet] 0.2 mg TOP Q8 11/12/17 Cyanocobalamin (Vitamin B-12) [B-12] 1,000 mcg PO DAILY 11/12/17 Furosemide [Lasix 40 mg Tablet] 40 mg PO BID 11/12/17 Insulin Aspart [Novolog Flexpen] 5 unit SQ AC 11/12/17 Insulin Glargine,Hum.rec.anlog [Lantus] 14 unit SQ QHS 11/12/17 Lisinopril [Prinivil 40 mg Tablet] 40 mg PO BID 11/12/17 Omeprazole 20 mg PO DAILY PRN 11/12/17 Sildenafil Citrate [Viagra] 100 mg PO DAILY PRN 11/12/17 Amlodipine Besylate [Norvasc 10 mg Tablet] 10 mg PO DAILY 02/03/19 Finasteride [Proscar] 5 mg PO DAILY 02/03/19 Hydralazine HCl [Apresoline 50 mg Tablet] 100 mg PO TID 02/03/19 Sodium Bicarbonate [Antacid] 2 tab PO TID 02/03/19 Allergies/Adverse Reactions: No Known Allergies Allergy (Verified 02/15/19 13:09) Past Medical History Cardiac Medical History: Reports: Congestive Heart Failure, Hyperlipidema, Hypertension Denies: Coronary Artery Disease, Myocardial Infarction Pulmonary Medical History: Denies: Asthma, Bronchitis, Chronic Obstructive Pulmonary Disease (COPD), Pneumonia Neurological Medical History: Denies: Seizures Endocrine Medical History: Reports: Diabetes Mellitus Type 2 Renal/ Medical History: Reports: End Stage Renal Disease GI Medical History: Reports: Hiatal Hernia Denies: Hepatitis Musculoskeltal Medical History: Denies: Arthritis Hematology: Reports: Anemia Denies: Sickle Cell Disease Past Surgical History Past Surgical History: Reports: Appendectomy, Cholecystectomy, Orthopedic Surgery - laminectomy, knee Denies: Pacemaker Family History Family History: Reviewed & Not Pertinent Parental Family History Reviewed: No Children Family History Reviewed: No Sibling(s) Family History Reviewed.: No Social History Smoking Status: Unknown if Ever Smoked Drugs: None Physical Exam Vital Signs: Temp Pulse Resp BP Pulse Ox 97.8 F 54 L 18 131/71 H 100 09/15/19 12:00 09/15/19 12:00 09/15/19 12:00 09/15/19 12:00 09/15/19 12:00 Intake & Output 09/14/19 09/15/19 09/16/19 06:59 06:59 06:59 Weight 92.72 kg Additional comments: Constitutional: Well-developed well-nourished gentleman. No apparent acute distress. Eyes: Mucous membranes pink and moist, pupils equal and reactive to light. Conjunctiva normal. Cornea normal. ENT: Hearing grossly normal. External pinna normal to inspection. Teeth intact. Tongue normal to inspection. Cardiac: Heart sounds normal. Respiratory: breath sounds are present bilaterally, normal. Normal respiratory effort. Abdomen: Soft, non tender. Liver and spleen are not palpably enlarged. Peritoneal dialysis catheter in place. Psychiatric: Judgment, memory, insight seem normal. Mood is pleasant and appropriate. Extremities: Upper extremities show normal range of movement. Pulses present noted to the radial arteries. Capillary refill normal. No cyanosis noted. No muscle wasting noted. Neurovascular: No apparent tremors, gait normal. Sensation grossly intact. Hearing grossly normal. Vison grossly intact. Impression/Plan Plan: In this patient who is growing yeast and also Serratia from his peritoneal dialysis site, catheter removal seems well indicated. This was discussed with the patient along with a plan to insert a permacatheter tomorrow probably in the Airways Control Specialist. The patient's questions and concerns addressed. He is aware of the risks, benefits, expected outcome and alternatives. He wishes to proceed.
[2019-09-15] MEDS ORDERED: LIDOCAINE 0.5% INJ-PF (5 MG/ML) 50 ML SDV ONE (13:42)
[2019-09-15] MEDS ORDERED: BUPIVACAINE HCL 0.5 % INJ/PF 30 ML SDV ONE (13:42)
[2019-09-15 13:44] LABS: ANION GAP 13 (5-19); BLOOD UREA NITROGEN 65 mg/dL (7-20); CALCIUM 10.2 mg/dL (8.4-10.2); CARBON DIOXIDE 26 mmol/L (22-30); CHLORIDE 94 mmol/L (98-107); GLUCOSE 153 mg/dL (75-110); POTASSIUM 3.9 mmol/L (3.6-5.0)
--- NOTE | 2019-09-15 13:58 | RADIOLOGY REPORT (SQ) ---
EXAM DESCRIPTION: CHEST SINGLE VIEW COMPLETED DATE/TIME: 09/15/2019 1:36 pm REASON FOR STUDY: PREOP COMPARISON: 02/03/2019 EXAM PARAMETERS: NUMBER OF VIEWS: One view. TECHNIQUE: Single frontal radiographic view of the chest acquired. RADIATION DOSE: NA LIMITATIONS: None. FINDINGS: LUNGS AND PLEURA: No opacities, masses or pneumothorax. No pleural effusion. MEDIASTINUM AND HILAR STRUCTURES: No masses. Contour normal. HEART AND VASCULAR STRUCTURES: Heart normal in size. Normal vasculature. BONES: No acute findings. HARDWARE: None in the chest. OTHER: No other significant finding. IMPRESSION: NO ACUTE RADIOGRAPHIC FINDING IN THE CHEST. TECHNICAL DOCUMENTATION: JOB ID: [id number] [employer]- All Rights Reserved Reading location - IP/workstation name: [email or web address]
[2019-09-15] MEDS ORDERED: DIPHENHYDRAMINE HCL 50 MG/ML VIAL IV PRN (14:10)
[2019-09-15] MEDS ORDERED: PROMETHAZINE HCL INJ 25 MG/1 ML VIAL IV PRN ×2 (14:10)
[2019-09-15] MEDS ORDERED: OXYCODONE-ACETAMINOPHEN 5-325 MG TABLET PO PRN ×3 (14:10→17:16)
[2019-09-15] MEDS ORDERED: FENTANYL CITRATE INJ/PF 100 MCG/2 ML AMPUL IV PRN ×3 (14:10)
[2019-09-15] MEDS ORDERED: MEPERIDINE HCL/PF INJ 25 MG/1 ML DISP.SYRIN IV PRN (14:10)
--- NOTE | 2019-09-15 14:57 | Discharge Summary ---
Discharge Summary (SDC) - Discharge Final Diagnosis: #1 peritoneal dialysis catheter infection. 2. End-stage renal disease on peritoneal dialysis. 3. Chronic lymphocytic leukemia. #4 diabetes mellitus type 2. #5 hypertension. Date of Surgery: 09/15/19 Discharge Date: 09/15/19 Condition: Good Treatment or Instructions: Discharge home [after recovery per ASU criteria]. The patient is to be readmitted for PermCath insertion tomorrow 17 July. N.p.o. post midnight except for meds. Diet , [renal],as tolerated, when fully awake advance as tolerated. N.p.o. post midnight for procedure tomorrow as noted. To be admitted to be readmitted to ambulatory. To be readmitted through amatory surgery. Activities within moderation encouraged. Follow up in my office by appointment in about [1 week]. Call for appointment. Leave wounds [covered], [keep clean and dry, until office visit in 1 week]. Hold of on school/work [until evaluation in office]. Meds per med rec. Percocet. May shower [in 48 hrs], [try to keep operated area as dry as possible]. Prescriptions: Oxycodone HCl/Acetaminophen [Percocet 5-325 mg Tablet] 1 tab PO ASDIR PRN #15 tab PRN Reason: Referrals: [facility] [Primary Care Provider] - Report the Following to Your Physician Immediately: Shortness of Breath, Unusual Bleeding
--- NOTE | 2019-09-15 15:02 | Operative Report ---
Operative Report DATE OF SURGERY: 09/15/19 PREOPERATIVE DIAGNOSIS: #1 peritoneal dialysis catheter infection. 2. End-sta ge renal disease on peritoneal dialysis. 3. Chronic lymphocytic leukemia. #4 diabetes mellitus type 2. #5 hypertension. POSTOPERATIVE DIAGNOSIS: #1 peritoneal dialysis catheter infection. 2. End- stage renal disease on peritoneal dialysis. 3. Chronic lymphocytic leukemia. #4 diabetes mellitus type 2. #5 hypertension. OPERATION: Removal of infected peritoneal dialysis catheter. SURGEON: ZHANG FELIPE PROJECT INTERN: None. ANESTHESIA: LMAC TISSUE REMOVED OR ALTERED: Not applicable. Intraperitoneal portion of catheter submitted for culture. COMPLICATIONS: None. ESTIMATED BLOOD LOSS: 5 mL. INTRAOPERATIVE FINDINGS: Of a well founded peritoneal dialysis catheter. Cuff is well incorporated with the surrounding tissues. Erythema and slight purulence noted at the exit site. PROCEDURE: The patient was taken to the operating room after obtaining informed consent. After the [place] universal timeout in which is verified that the patient received IV antibiotic, the procedure commenced. The abdomen was. His torso been and draped under sterile linen. Local anesthesia was infiltrated in the scar of the periumbilical incision. Incision made and dissection proceeded bluntly using a hemostat down to the catheter. Dissecting in a retrograde fashion the superficial cuff was dissected away from the surrounding tissues. The internal cuff was likewise exposed and this dissected. The catheter was now removed with some entirety, transected on the internal portion sent for culture. Hemostasis was secured in the wound and the wound you closed using interrupted 3 0 PDS sutures dressings applied procedure concluded.
[2019-09-15] MEDS ORDERED: OXYCODONE-ACETAMINOPHEN 5-325 MG TABLET ONE (16:58)
[2019-09-15] MEDS ORDERED: DOXAZOSIN MESYLATE 2 MG TABLET PO SCH (22:00)
[2019-09-15] MEDS ORDERED: INSULIN GLARGINE,HUM.REC.ANLOG 1,000 UNIT/10 ML VIAL SUBCUT SCH (22:00)
[2019-09-15] MEDS: LISINOPRIL 10 MG TABLET PO SCH (22:13)
[2019-09-15] MEDS: HYDRALAZINE HCL 50 MG TABLET PO SCH (22:13)
[2019-09-15] MEDS: CARVEDILOL 12.5 MG TABLET PO SCH (22:14)
[2019-09-16] MEDS ORDERED: PANTOPRAZOLE SODIUM 20 MG TABLET.DR PO SCH (06:00)
[2019-09-16] MEDS ORDERED: INSULIN ASPART 5 UNIT SQ SCH (08:00)
[2019-09-16] MEDS ORDERED: INSULIN LISPRO 100 UNIT/ML 3 ML VIAL SUBCUT SCH (08:00)
[2019-09-16] MEDS ORDERED: BACITRACIN INJ 50,000 UNIT VIAL ONE (08:15)
[2019-09-16] MEDS ORDERED: LIDOCAINE 0.5% INJ-PF (5 MG/ML) 50 ML SDV ONE (08:15)
[2019-09-16] MEDS ORDERED: MIDAZOLAM 2 MG/2 ML INJ ONE (08:20)
[2019-09-16] MEDS ORDERED: CEFAZOLIN INJ 1 GM VIAL ONE (08:21)
[2019-09-16] MEDS ORDERED: FENTANYL CITRATE INJ/PF 100 MCG/2 ML AMPUL ONE (08:21)
--- NOTE | 2019-09-16 09:52 | Discharge Summary ---
Discharge Summary (SDC) - Discharge Final Diagnosis: #1 peritoneal dialysis catheter infection. 2. End-stage renal disease on dialysis. 3. Chronic lymphocytic leukemia. 4. Diabetes mellitus type 2. 5. Hypertension. Date of Surgery: 09/15/19 Discharge Date: 09/16/19 Condition: Good Treatment or Instructions: Discharge home [after recovery per ASU criteria]. Diet , [renal],as tolerated, when fully awake advance as tolerated. Activities within moderation encouraged. Follow up in my office by appointment in about [1 week]. Call for appointment. Leave wounds [covered], [keep clean and dry, until dialysis. Hold of on school/work [until evaluation in office]. Meds per med rec. Percocet. May shower [in 48 hrs], [try to keep operated area as dry as possible]. Referrals: [facility] [Provider Group] - 09/25/19 9:15 am [facility] [Primary [facility] [place]] - Discharge Diet: Other (Comments) - Renal, diabetic. Respiratory Treatments at Home: Deep Breathing/Coughing Discharge Activity: Activity As Tolerated Report the Following to Your Physician Immediately: Shortness of Breath, Unusual Bleeding
--- NOTE | 2019-09-16 09:58 | Operative Report ---
Operative Report DATE OF SURGERY: 09/16/19 PREOPERATIVE DIAGNOSIS: #1 peritoneal dialysis catheter infection. 2. End-sta ge renal disease on dialysis. 3. Chronic lymphocytic leukemia. 4. Diabetes mellitus type 2. 5. Hypertension. POSTOPERATIVE DIAGNOSIS: #1 peritoneal dialysis catheter infection. 2. End- stage renal disease on dialysis. 3. Chronic lymphocytic leukemia. 4. Diabetes mellitus type 2. 5. Hypertension. OPERATION: 1. Ultrasound evaluation of the right internal jugular vein. 2. Insertion of permacatheter via real-time access of the right internal jugular vein. 3. Angiogram and interpretation. SURGEON: ZHANG FELIPE RELAY TESTER: None. ANESTHESIA: Moderate Sedation TISSUE REMOVED OR ALTERED: Not applicable. COMPLICATIONS: None. ESTIMATED BLOOD LOSS: 5 mL. INTRAOPERATIVE FINDINGS: Of a satisfactory right internal jugular vein to support catheter. Adjacent carotid artery unusually large. Ultrasound of great efficacy and safe access. Satisfactory and safe access. Tip of the catheter position in about the middle of the right atrial pool. Easy egress of blood and ingress of heparinized solution through both ports. Angiogram demonstrates smooth flow of contrast through the right atrium, ventricle and pulmonary outflow tract. Final x-ray shows hardware in good position, no untoward findings. PROCEDURE: After obtaining informed consent, the patient was taken to the [Roll Form Operator] and positioned supine. The [right neck] and chest were prepared with chlorhexidine and draped out with sterile linen. After the " universal timeout", in which it was verified that the patient continued to receive antibiotic, the procedure commenced. A steriley sheathed ultrasound probe was used to evaluate the [right internal jugular] vein. Local anesthesia was infiltrated adjacent to the probe. Access into the [right internal jugular] vein was obtained using a micropuncture needle, followed by micropuncture wire and then a micropuncture catheter. This was followed by introduction of a 0.035 guidewire the tip of which was placed down into the inferior vena cava . A 27 cm long permacatheter was now positioned over the chest and an exit site marked and locally anesthetized ,the catheter was placed between the 2 incisions. Proximally, the was now positioned using a peel-away sheath, after dilation. Easy ingress of heparinized solution and egress of blood obtained through both ports. A completion angiogram was done by injecting contrast. The findings were as dictated. The neck incision was now closed using interrupted 3-0 PDS to the subcutaneous tissues, the catheter was anchored at the exit site using 3-0 PDS. A Biopatch device was now placed adjacent to the catheter. Dressings were applied and the procedure concluded. Exposure time: [1.1 minutes]. Exposure: 8.74 Jaz Garcia. Contrast amount: [5 mL] of [id number] low osmolality. Copies of the dictated operative report for Dr. Zhang Esteban MD.concluded. Copies of the dictated operative report for Dr. Zhang Esteban MD.
[2019-09-16] MEDS ORDERED: (PENDING PHARMACY ID) (Ferric Citrate [Auryxia] 210 MG) PO SCH (10:00)
[2019-09-16] MEDS ORDERED: CHOLECALCIFEROL (D3) 400 UNIT TABLET PO SCH (10:00)
[2019-09-16] MEDS ORDERED: OMEGA-3 ACID ETHYL ESTERS 1 GM CAPSULE PO SCH (10:00)
[2019-09-16] MEDS ORDERED: CYANOCOBALAMIN (VITAMIN B-12) 1,000 MCG TABLET PO SCH (10:00)
[2019-09-16] MEDS ORDERED: FUROSEMIDE 40 MG TABLET PO SCH (10:00)
[2019-09-16] MEDS ORDERED: ASPIRIN 81 MG TABLET, CHEWABLE PO SCH (10:00)
[2019-09-16] MEDS ORDERED: CALCITRIOL 0.25 MCG CAPSULE PO SCH (10:00)
[2019-09-16] MEDS ORDERED: AMLODIPINE BESYLATE 10 MG TABLET PO SCH (10:00)
[2019-09-16] MEDS ORDERED: OMEGA PO SCH (10:00)
[2019-09-16] MEDS ORDERED: FINASTERIDE 5 MG TABLET PO SCH (10:00)
[2019-09-16] MEDS ORDERED: FISH OIL PO SCH (10:00)
[2019-09-16] MEDS ORDERED: FATTY ACIDS PO SCH (10:00)
[2019-09-16] MEDS: LISINOPRIL 10 MG TABLET PO SCH (10:34)
[2019-09-16] MEDS: HYDRALAZINE HCL 50 MG TABLET PO SCH (10:34)
[2019-09-16] MEDS: CARVEDILOL 12.5 MG TABLET PO SCH (10:34)
[2019-09-16 12:56] VITALS: BP 148/70
[2019-09-17] MEDS ORDERED: CLONIDINE 0.3 MG/24 HR PATCH.TDWK TD SCH (10:00)
== END 2019-09-16 12:06 | disposition home or self-care (01) ==
LOC: OROUT 11:40 → 5 16:10 → OROUT 09-16 12:06
PROVIDERS: ATTEND Surgery
DX: T82.7XXA Infection and inflammatory reaction due to other cardiac and vascular devices, implants and grafts, initial encounter (principal); Y83.2 Surgical operation with anastomosis, bypass or graft as the cause of abnormal reaction of the patient, or of later complication, without mention of misadventure at the time of the procedure; I13.2 Hypertensive heart and chronic kidney disease with heart failure and with stage 5 chronic kidney disease, or end stage renal disease; E11.22 Type 2 diabetes mellitus with diabetic chronic kidney disease; N18.6 End stage renal disease; K44.9 Diaphragmatic hernia without obstruction or gangrene; Z79.4 Long term (current) use of insulin; Z79.82 Long term (current) use of aspirin; Z79.899 Other long term (current) drug therapy
CPT/HCPCS: 36415; 87070; 82962; 85027; 80048; 36558; 76937; 77001; 71045; 93005; 93010; C1752; Q9967; J2250 ×2; A9270 ×16; J3490 ×5; J0690 ×2; J3010; J7060; J2704; J1644; 840

== ENCOUNTER 2019-09-21 19:47 | Emergency (ER) | payer OTHER, MEDICARE ==
--- NOTE | 2019-09-21 19:58 | ER Document Report ---
ED Medical Screen (RME) - General Chief Complaint: Post Surgical Bleeding Stated Complaint: PORT BLEEDING Time Seen by Provider: 09/21/19 19:55 Primary Care Provider: SHANIQUA GALVIN [Primary Care Provider] - Follow up as needed Mode of Arrival: Wheelchair Information source: Patient Notes: 69-year-old male presented to ED for complaint of bleeding from his dialysis catheter that was placed on Sunday. He states he had a yeast infection in the dialysis port was in his abdomen and they pulled that out Sunday and placed this catheter. He states he called the dialysis nurse and he told her to come straight to the emergency room. He denies smoking drinking or drugs. He states he has diabetes high blood pressure heart failure and kidney failure CLL. I have greeted and performed a rapid initial assessment of this patient. A comprehensive ED assessment and evaluation of the patient, analysis of test results and completion of medical decision making process will be conducted by an additional ED providers. TRAVEL OUTSIDE OF THE [place] IN LAST 30 DAYS: No - Related Data Allergies/Adverse Reactions: No Known Allergies Allergy (Verified 02/15/19 13:09) Past Medical History - Past Medical History Cardiac Medical History: Reports: Hx Congestive Heart Failure, Hx Hypercholesterolemia, Hx Hypertension Denies: Hx Coronary Artery Disease, Hx Heart Attack Pulmonary Medical History: Denies: Hx Asthma, Hx Bronchitis, Hx COPD, Hx Pneumonia Neurological Medical History: Denies: Hx Cerebrovascular Accident, Hx Seizures Endocrine Medical History: Reports: Hx Diabetes Mellitus Type 2 Renal/ Medical History: Reports: Hx End Stage Renal Disease, Hx Peritoneal Dialysis - last on sunday GI Medical History: Reports: Hx Hiatal Hernia. Denies: Hx Hepatitis, Hx Ulcer Musculoskeltal Medical History: Denies Hx Arthritis Infectious Medical History: Denies: Hx Hepatitis Past Surgical History: Reports: Hx Abdominal Surgery - hernia repair, Hx Appendectomy, Hx Cholecystectomy, Hx Kidney (Renal Surgery) - right kidney-half removed, Hx Oral Surgery, Hx Orthopedic Surgery - laminectomy, knee. Denies: Hx Open Heart Surgery, Hx Pacemaker - Immunizations Hx Diphtheria, Pertussis, Tetanus Vaccination: Yes Doctor's Discharge - Discharge [facility]errals: [facility] [[facility]] - Follow up as needed
[2019-09-21 20:37] LABS: ABSOLUTE EOSINOPHILS # (AUTO) 0.1 10^3/uL (0.0-0.6); ABSOLUTE MONOCYTES (AUTO) 0.3 10^3/uL (0.1-1.4); ABSOLUTE NEUT (AUTO) 2.9 10^3/uL (1.7-8.2); BASOPHILS % (AUTO) 0.9 % (0-2); EOSINOPHILS % (AUTO) 2.6 % (0-6); HEMOGLOBIN 12.3 g/dL (13.5-17.0); LYMPHOCYTES % (AUTO) 23.2 % (13-45); MEAN CORPUSCULAR HGB CONC 34.2 g/dL (32.0-36.0); MEAN CORPUSCULAR VOLUME 91 fl (80-97); MONOCYTES % (AUTO) 7.7 % (3-13); PLATELET COUNT 148 10^3/uL (150-450); RED BLOOD COUNT 3.96 10^6/uL (4.35-5.55); RED CELL DISTRIBUTION WIDTH 15.5 % (11.5-14.0); SEGMENTED NEUTROPHILS % (AUTO) 65.6 % (42-78); TOTAL CELLS COUNTED % (AUTO) 100 %; WHITE BLOOD COUNT 4.4 10^3/uL (4.0-10.5)
[2019-09-21 20:51] LABS: INTERNATIONAL RATION (INR) 0.92; PARTIAL THROMBOPLASTIN TIME 33.6 SEC (23.5-35.8); PROTHROMBIN TIME 12.4 SEC (11.4-15.4)
[2019-09-21 21:02] LABS: ALBUMIN 3.3 g/dL (3.5-5.0); ALKALINE PHOSPHATASE 75 U/L (38-126); ANION GAP 10 (5-19); ASPARTATE AMINO TRANSFERASE 16 U/L (17-59); BILIRUBIN,DIRECT 0.2 mg/dL (0.0-0.4); BILIRUBIN,TOTAL 0.4 mg/dL (0.2-1.3); BLOOD UREA NITROGEN 30 mg/dL (7-20); CALCIUM 8.8 mg/dL (8.4-10.2); CARBON DIOXIDE 28 mmol/L (22-30); CHLORIDE 104 mmol/L (98-107); GLUCOSE 171 mg/dL (75-110); POTASSIUM 3.9 mmol/L (3.6-5.0); TOTAL PROTEIN 5.8 g/dL (6.3-8.2)
--- NOTE | 2019-09-21 21:02 | RADIOLOGY REPORT (SQ) ---
EXAM DESCRIPTION: XR CHEST 2 VIEWS COMPLETED DATE/TME: 09/21/2019 19:59 CLINICAL HISTORY: 69 years Male Bleeding from dialysis catheter paced sunday COMPARISON: 09/15/2019. FINDINGS: Cardiac size appears unchanged. There has been placement of a tunneled catheter with the tip at the junction of the SVC and right atrium. No pneumothorax is noted. No consolidation or pleural fluid. Mildly tortuous aorta. IMPRESSION: Tunneled IJ catheter with the tip at the junction of the SVC and right atrium No evidence of pneumothorax.
--- NOTE | 2019-09-21 22:43 | ER Document Report ---
ED General - General Chief Complaint: Post Surgical Bleeding Stated Complaint: PORT BLEEDING Time Seen by Provider: 09/21/19 19:55 Primary Care Provider: [facility] [Primary Care Provider] - Follow up as needed Mode of Arrival: Wheelchair TRAVEL OUTSIDE OF THE [place] IN LAST 30 DAYS: No - HPI Notes: Patient is a 69-year-old male, end-stage renal disease, who presents emergency department for evaluation of bleeding at his dialysis catheter site. He was on peritoneal dialysis, port was pulled secondary to a candidal infection. He had a tunneled catheter placed in the right chest by Dr. Esteban over a week ago. He has had dialysis successfully through it multiple times. Today he noticed blood at the site, who presents to the ED for further evaluation. He is on any blood thinners. He denies any chest pain or difficulty breathing. No other ac muscogee symptoms or concerns. - Related Data Allergies/Adverse Reactions: No Known Allergies Allergy (Verified 02/15/19 13:09) Home Medications: Extensive medication list, patient is unsure of meds, but denies blood thinner use Past Medical History - General Information source: Patient - Social History Smoking Status: Never Smoker Chew tobacco use (# tins/day): No Frequency of alcohol use: None Drug Abuse: None Family History: Reviewed & Not Pertinent Patient has suicidal ideation: No Patient has homicidal ideation: No - Past Medical History Cardiac Medical History: Reports: Hx Congestive Heart Failure, Hx Hypercholesterolemia, Hx Hypertension Denies: Hx Coronary Artery Disease, Hx Heart Attack Pulmonary Medical History: Denies: Hx Asthma, Hx Bronchitis, Hx COPD, Hx Pneumonia Neurological Medical History: Denies: Hx Cerebrovascular Accident, Hx Seizures Endocrine Medical History: Reports: Hx Diabetes Mellitus Type 2 Renal/ Medical History: Reports: Hx End Stage Renal Disease, Hx Peritoneal Dialysis - last on sunday GI Medical History: Reports: Hx Hiatal Hernia. Denies: Hx Hepatitis, Hx Ulcer Musculoskeletal Medical History: Denies Hx Arthritis Infectious Medical History: Denies: Hx Hepatitis Past Surgical History: Reports: Hx Abdominal Surgery - hernia repair, Hx Appendectomy, Hx Cholecystectomy, Hx Kidney (Renal Surgery) - right kidney-half removed, Hx Oral Surgery, Hx Orthopedic Surgery - laminectomy, knee. Denies: Hx Open Heart Surgery, Hx Pacemaker - Immunizations Hx Diphtheria, Pertussis, Tetanus Vaccination: Yes Review of Systems - Review of Systems Constitutional: No symptoms reported EENT: No symptoms reported Cardiovascular: No symptoms reported Respiratory: No symptoms reported Gastrointestinal: No symptoms reported Genitourinary: No symptoms reported Musculoskeletal: No symptoms reported Skin: No symptoms reported Hematologic/Lymphatic: See HPI Neurological/Psychological: No symptoms reported Physical Exam - Vital signs Vitals: Temp Pulse Resp BP Pulse Ox 98.3 F 73 18 144/65 H 99 09/21/19 19:52 09/21/19 19:52 09/21/19 19:52 09/21/19 19:52 09/21/19 19:52 - Notes Notes: This is a very pleasant 69-year-old male who appears his stated age in no acute distress. Head is normocephalic and atraumatic, pupils are equal round reactive to light. Heart is regular rate and rhythm, lungs are clear to station bilaterally. Abdomen soft, nontender, normoactive bowel sounds. Examination of the right chest feels an organized clot around a tunneled catheter just inferior to the clavicle. No active bleeding is identified. Course - Re-evaluation Re-evalutation: 09/21/19 22:42 Patient presents emergency department for evaluation. Laboratory investigations were obtained. Chest x-ray as well. These were found to be unremarkable. I did cleanse the area and take down some of the clot. No active bleeding was identified. The patient was observed for some time to look for rebleeding. We will continue to monitor. 09/22/19 01:04 After cleansing the patient did have a small amount of blood oozing, I cannot see a clear source. It appears to be from the tunneled area. Some quick clot was placed in the area, it was again thoroughly cleansed and bandaged. After some observation only a very small amount of bleeding was noted. He already has an appointment with Dr. Esteban tomorrow. He is advised to keep it, return to the ED with worsening. - Vital Signs Vital signs: Temp Pulse Resp BP Pulse Ox 98.3 F 73 18 144/65 H 99 09/21/19 19:52 09/21/19 19:52 09/21/19 19:52 09/21/19 19:52 09/21/19 19:52 - Laboratory Result Diagrams: 09/21/19 20:19 09/21/19 20:19 Laboratory results interpreted by me: 09/21/19 09/21/19 20:19 20:19 RBC 3.96 L Hgb 12.3 L Hct 36.0 L RDW 15.5 H Plt Count 148 L BUN 30 H Creatinine 5.24 H Est GFR ( Amer) 13 L Est GFR (MDRD) Non-Af 11 L Glucose 171 H AST 16 L Total Protein 5.8 L Albumin 3.3 L Discharge - Discharge Clinical Impression: Bleeding at dialysis catheter site Condition: Stable Disposition: HOME, SELF-CARE Additional Instructions: Keep bandaging in place until follow-up with Dr. Esteban tomorrow. If you start having significantly heavier bleeding, chest pain, difficulty breathing, or any other new or concerning symptoms, please return immediately to the emergency department for evaluation. [facility]errals: [facility] [[facility]] - Follow up as needed
[2019-09-22 01:20] VITALS: BP 168/72
== END 2019-09-22 01:23 | disposition home or self-care (01) ==
LOC: ER 19:47
DX: T82.838A Hemorrhage due to vascular prosthetic devices, implants and grafts, initial encounter (principal); Y84.1 Kidney dialysis as the cause of abnormal reaction of the patient, or of later complication, without mention of misadventure at the time of the procedure; E11.22 Type 2 diabetes mellitus with diabetic chronic kidney disease; I13.2 Hypertensive heart and chronic kidney disease with heart failure and with stage 5 chronic kidney disease, or end stage renal disease; I50.9 Heart failure, unspecified; N18.6 End stage renal disease; Z99.2 Dependence on renal dialysis; E78.00 Pure hypercholesterolemia, unspecified; Z90.49 Acquired absence of other specified parts of digestive tract
CPT/HCPCS: 36415; 71046; 80053; 85025; 85610; 85730; 99283

== ENCOUNTER 2019-11-22 11:28 | Emergency (ER) | payer OTHER, MEDICARE ==
--- NOTE | 2019-11-22 11:51 | ER Document Report ---
ED Medical Screen (RME) - General Chief Complaint: Numbness Stated Complaint: TINGLING SENSTATION Time Seen by Provider: 11/22/19 11:39 Primary Care Provider: SHANIQUA GALVIN [Primary Care Provider] - Follow up as needed Notes: Patient is a 69-year-old male, on hemodialysis who presents to the emergency department with numbness and tingling in bilateral hands. He states that it happened during dialysis. They ended up giving him extra fluids. He states that he thinks they possibly took too much off. Patient has history of nephrectomy. He is also supposed to go to [place] for a cardiac bypass in 2 weeks. 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 Exam: S1, S2. Normal strength in bilateral extremities. I have greeted and performed a rapid initial assessment of this patient. A comprehensive ED assessment and evaluation of the patient, analysis of test results and completion of medical decision making process will be conducted by an additional ED providers. TRAVEL OUTSIDE OF THE [place] IN LAST 30 DAYS: No - Related Data Allergies/Adverse Reactions: No Known Allergies Allergy (Verified 02/15/19 13:09) Past Medical History - Past Medical History Cardiac Medical History: Reports: Hx Congestive Heart Failure, Hx Hypercholesterolemia, Hx Hypertension Denies: Hx Coronary Artery Disease, Hx Heart Attack Pulmonary Medical History: Denies: Hx Asthma, Hx Bronchitis, Hx COPD, Hx Pneumonia Neurological Medical History: Denies: Hx Cerebrovascular Accident, Hx Seizures Endocrine Medical History: Reports: Hx Diabetes Mellitus Type 2 Renal/ Medical History: Reports: Hx End Stage Renal Disease, Hx Peritoneal Dialysis - last on sunday GI Medical History: Reports: Hx Hiatal Hernia. Denies: Hx Hepatitis, Hx Ulcer Musculoskeltal Medical History: Denies Hx Arthritis Infectious Medical History: Denies: Hx Hepatitis Past Surgical History: Reports: Hx Abdominal Surgery - hernia repair, Hx Appendectomy, Hx Cholecystectomy, Hx Kidney (Renal Surgery) - right kidney-half removed, Hx Oral Surgery, Hx Orthopedic Surgery - laminectomy, knee. Denies: Hx Open Heart Surgery, Hx Pacemaker - Immunizations Hx Diphtheria, Pertussis, Tetanus Vaccination: Yes Doctor's Discharge - Discharge Referrals: KAM[facility],SHANIQUA [Primary Care Provider] - Follow up as needed
--- NOTE | 2019-11-22 12:32 | RADIOLOGY REPORT (SQ) ---
EXAM DESCRIPTION: CT HEAD WITHOUT COMPLETED DATE/TIME: 11/22/2019 12:19 pm REASON FOR STUDY: numbness and tingling in hands COMPARISON: None. TECHNIQUE: Axial images acquired through the brain without intravenous contrast. Images reviewed wi th bone, brain and subdural windows. Additional sagittal and coronal reconstructions were generated. Images stored on PACS. All CT scanners at this facility use dose modulation, iterative reconstruction, and/or weight based d osing when appropriate to reduce radiation dose to as low as reasonably achievable (ALARA). [facility]: Dose Right [facility]: CareDose [facility]: Dose Right [facility]: Teradose 4D [facility]: Smart Giraffic RADIATION DOSE: CT Rad equipment meets quality standard of care and radiation dose reduction techniq ues were employed. CTDIvol: 48.7 mGy. DLP: 980 mGy-cm. mGy. LIMITATIONS: None. FINDINGS: VENTRICLES: Normal size and contour. CEREBRUM: No masses. No hemorrhage. No midline shift. No evidence for acute infarction. Normal gra y/white matter differentiation. No areas of low density in the white matter. CEREBELLUM: No masses. No hemorrhage. No alteration of density. No evidence for acute infarction. EXTRAAXIAL SPACES: No fluid collections. No masses. ORBITS AND GLOBE: No intra- or extraconal masses. Normal contour of globe without masses. CALVARIUM: No fracture. PARANASAL SINUSES: Mucus or serous retention cysts in the right and left maxillary sinus SOFT TISSUES: No mass or hematoma. OTHER: No other significant finding. IMPRESSION: NORMAL BRAIN CT WITHOUT CONTRAST. EVIDENCE OF ACUTE STROKE: NO. COMMENT: Quality ID # [id number]: Final reports with documentation of one or more dose reduction techniques (e.g., Automated exposure control, adjustment of the mA and/or kV according to patient size, use of iterative reconstruction technique) TECHNICAL DOCUMENTATION: JOB ID: [id number] [employer]- All Rights Reserved Reading location - IP/workstation name: [email or web address]
--- NOTE | 2019-11-22 13:08 | RADIOLOGY REPORT (SQ) ---
EXAM DESCRIPTION: CHEST SINGLE VIEW COMPLETED DATE/TIME: 11/22/2019 12:51 pm REASON FOR STUDY: numbness and tingling COMPARISON: Two-view chest 09/21/2019 Two-view chest 07/10/2018 EXAM PARAMETERS: NUMBER OF VIEWS: One view. TECHNIQUE: Single frontal radiographic view of the chest acquired. RADIATION DOSE: NA LIMITATIONS: None. FINDINGS: LUNGS AND PLEURA: No opacities, masses or pneumothorax. No pleural effusion. MEDIASTINUM AND HILAR STRUCTURES: No masses. Contour normal. HEART AND VASCULAR STRUCTURES: Heart normal in size. Normal vasculature. BONES: No acute findings. HARDWARE: Right-sided central venous dialysis catheter tip in the superior vena cava. Clips right up per quadrant post cholecystectomy. OTHER: No other significant finding. IMPRESSION: NO ACUTE RADIOGRAPHIC FINDING IN THE CHEST. TECHNICAL DOCUMENTATION: JOB ID: [id number] [employer]- All Rights Reserved Reading location - IP/workstation name: [email or web address]
[2019-11-22 13:17] LABS: ALKALINE PHOSPHATASE 96 U/L (38-126); ANION GAP 10 (5-19); ASPARTATE AMINO TRANSFERASE 18 U/L (17-59); BILIRUBIN,DIRECT 0.4 mg/dL (0.0-0.4); BILIRUBIN,TOTAL 0.6 mg/dL (0.2-1.3); BLOOD UREA NITROGEN 21 mg/dL (7-20); CALCIUM 8.2 mg/dL (8.4-10.2); CARBON DIOXIDE 27 mmol/L (22-30); CHLORIDE 100 mmol/L (98-107); CREATINE KINASE 62 U/L (55-170); GLUCOSE 216 mg/dL (75-110); POTASSIUM 3.9 mmol/L (3.6-5.0)
[2019-11-22 13:26] LABS: ABSOLUTE EOSINOPHILS # (AUTO) 0.1 10^3/uL (0.0-0.6); ABSOLUTE LYMPHOCYTES (AUTO) 1.4 10^3/uL (0.5-4.7); ABSOLUTE MONOCYTES (AUTO) 0.4 10^3/uL (0.1-1.4); ABSOLUTE NEUT (AUTO) 3.6 10^3/uL (1.7-8.2); BASOPHILS % (AUTO) 0.8 % (0-2); EOSINOPHILS % (AUTO) 1.1 % (0-6); HEMATOCRIT 29.9 % (37.9-51.0); HEMOGLOBIN 11.2 g/dL (13.5-17.0); LYMPHOCYTES % (AUTO) 25.2 % (13-45); MEAN CORPUSCULAR HEMOGLOBIN 34.1 pg (27.0-33.4); MEAN CORPUSCULAR VOLUME 91 fl (80-97); MONOCYTES % (AUTO) 6.7 % (3-13); PLATELET COUNT 219 10^3/uL (150-450); RED BLOOD COUNT 3.28 10^6/uL (4.35-5.55); RED CELL DISTRIBUTION WIDTH 16.2 % (11.5-14.0); SEGMENTED NEUTROPHILS % (AUTO) 66.2 % (42-78); TOTAL CELLS COUNTED % (AUTO) 100 %; WHITE BLOOD COUNT 5.4 10^3/uL (4.0-10.5)
[2019-11-22 13:41] LABS: MEAN CORPUSCULAR HGB CONC 37.4 g/dL (32.0-36.0)
--- NOTE | 2019-11-22 14:00 | EKG REPORT ---
SEVERITY:- ABNORMAL ECG - SINUS RHYTHM NONSPECIFIC T ABNORMALITIES, LATERAL LEADS : Confirmed by: Sage Hare MD 22-Nov-2019 13:59:14
--- NOTE | 2019-11-22 15:37 | ER Document Report ---
ED General - General Chief Complaint: Chest Pain Stated Complaint: TINGLING SENSTATION Time Seen by Provider: 11/22/19 11:39 Primary Care Provider: [facility] [Primary Care Provider] - Follow up as needed Mode of Arrival: Medic Information source: Patient TRAVEL OUTSIDE OF THE [place] IN LAST 30 DAYS: No - HPI Onset: Just prior to arrival Associated symptoms: Weakness, Other - vibrations of arms and legs - Related Data Allergies/Adverse Reactions: No Known Allergies Allergy (Verified 02/15/19 13:09) Past Medical History - General Information source: Patient - Social History Smoking Status: Never Smoker Frequency of alcohol use: None Drug Abuse: None Family History: Reviewed & Not Pertinent Patient has suicidal ideation: No Patient has homicidal ideation: No - Past Medical History Cardiac Medical History: Reports: Hx Congestive Heart Failure, Hx Hypercholesterolemia, Hx Hypertension Denies: Hx Coronary Artery Disease, Hx Heart Attack Pulmonary Medical History: Denies: Hx Asthma, Hx Bronchitis, Hx COPD, Hx Pneumonia Neurological Medical History: Denies: Hx Cerebrovascular Accident, Hx Seizures Endocrine Medical History: Reports: Hx Diabetes Mellitus Type 2 Renal/ Medical History: Reports: Hx End Stage Renal Disease, Hx Peritoneal Dialysis - last on sunday GI Medical History: Reports: Hx Hiatal Hernia. Denies: Hx Hepatitis, Hx Ulcer Musculoskeletal Medical History: Denies Hx Arthritis Infectious Medical History: Denies: Hx Hepatitis Past Surgical History: Reports: Hx Abdominal Surgery - hernia repair, Hx Appendectomy, Hx Cholecystectomy, Hx Kidney (Renal Surgery) - right kidney-half removed, Hx Oral Surgery, Hx Orthopedic Surgery - laminectomy, knee. Denies: Hx Open Heart Surgery, Hx Pacemaker - Immunizations Hx Diphtheria, Pertussis, Tetanus Vaccination: Yes Review of Systems - Review of Systems Constitutional: Weakness, Other - he complains of diffuse weakness and vibrations of arms and legs after he had" too much fluid drawn off during dialysis".." This is happened before in the past." Physical Exam - Vital signs Vitals: Resp BP Pulse Ox 15 174/70 H 98 11/22/19 11:41 11/22/19 11:41 11/22/19 11:41 Interpretation: Normal - Notes Notes: Patient has a port on his right chest. Patient is status post left lower abdomen peritoneal dialysis for 2 years. 2 years ago patient had right kidney resected because of kidney cancer. - General General appearance: Appears well, Alert - HEENT Head: Normocephalic, Atraumatic Eyes: Normal Pupils: PERRL - Respiratory Respiratory status: No respiratory distress Chest status: Nontender Breath sounds: Normal Chest palpation: Normal - Cardiovascular Rhythm: Regular Heart sounds: Normal auscultation Murmur: No - Abdominal Inspection: Normal Distension: No distension Bowel sounds: Normal Tenderness: Nontender Organomegaly: No organomegaly - Back Back: Normal, Nontender - Extremities General upper extremity: Normal inspection, Nontender, Normal color, Normal ROM, Normal temperature General lower extremity: Normal inspection, Nontender, Normal color, Normal ROM, Normal temperature, Normal weight bearing. No: Yesenia's sign - Neurological Neuro grossly intact: Yes Cognition: Normal Orientation: AAOx4 Caitlin Coma Scale Eye Opening: Spontaneous Caitlin Coma Scale Verbal: Oriented Caitlin Coma Scale Motor: Obeys Commands Caitlin Coma Scale Total: 15 Speech: Normal Motor strength normal: LUE, RUE, LLE, RLE Sensory: Normal - Psychological Associated symptoms: Normal affect, Normal mood - Skin Skin Temperature: Warm Skin Moisture: Dry Skin Color: Normal Course - Re-evaluation Re-evalutation: 11/22/19 15:45 Patient at this time is doing much better feels much improved. Patient wants to go home if he is medically stable. 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 Patient is is at bedside. - Vital Signs Vital signs: Temp Pulse Resp BP Pulse Ox 97.7 F 70 12 157/66 H 98 11/22/19 11:53 11/22/19 11:53 11/22/19 15:01 11/22/19 15:01 11/22/19 15:01 - Laboratory Result Diagrams: 11/22/19 11:35 11/22/19 11:35 Laboratory results interpreted by me: 11/22/19 11/22/19 11:35 11:35 RBC 3.28 L Hgb 11.2 L Hct 29.9 L MCH 34.1 H MCHC 37.4 H RDW 16.2 H BUN 21 H Creatinine 2.97 H Est GFR ( Amer) 25 L Est GFR (MDRD) Non-Af 21 L Glucose 216 H Calcium 8.2 L - Diagnostic Test Radiology reviewed: Reports reviewed - Chest x-ray within normal limits and CTA head was without any lesions per radiologist - EKG Interpretation by Me EKG shows normal: Sinus rhythm Rhythm: NSR Voltage: Consistant with LVH When compared to previous EKG there are: No significant change - Transfer of Care Notes: 11/22/19 16:05 Patient had orthostatic vital signs taken which were consistent with beta- blockers and calcium evelyne Critical Care Note - Critical Care Note Total time excluding time spent on procedures (mins): 30 Discharge - Discharge Clinical Impression: Paresthesia of arm, End stage renal disease Condition: Good Disposition: HOME, SELF-CARE Additional Instructions: follow up with personal doctor Dr. Pace this week ; return to ER as needed [facility]errals: [facility] [Primary [facility]] - Follow up as needed
[2019-11-22 16:10] VITALS: BP 132/62
[2019-11-22 18:05] LABS: PROTHROMBIN TIME 12.2 SEC (11.4-15.4)
== END 2019-11-22 16:13 | disposition home or self-care (01) ==
LOC: ER 11:28
DX: R20.0 Anesthesia of skin (principal); I13.2 Hypertensive heart and chronic kidney disease with heart failure and with stage 5 chronic kidney disease, or end stage renal disease; I50.9 Heart failure, unspecified; E11.22 Type 2 diabetes mellitus with diabetic chronic kidney disease; N18.6 End stage renal disease; R07.9 Chest pain, unspecified; R53.1 Weakness
CPT/HCPCS: 36415; 70450; 71045; 80053; 82550; 82553; 83735; 84484; 85025; 85610; 93005; 93010; 99291